=== PATIENT | male | born 1940 | race Caucasian/White ===

== ENCOUNTER 2020-09-24 16:23 | Inpatient (IN) | payer MEDICARE ==
[2020-09-24 17:39] LABS: CHLORIDE,CL 108 mmol/L (98-107); SODIUM,NA 145 mmol/L (136-145)
[2020-09-24 17:51] LABS: ANION GAP 16.2 mmol/L (10-20)
--- NOTE | 2020-09-24 17:53 | EDM.PDOC ---
<Amelia Regalado - Last Filed: 09/24/20 19:41> ED HPI GENERAL MEDICAL PROBLEM - General Stated Complaint: GENERAL Time Seen by Provider: 09/24/20 17:53 Source of Information: Reports: Patient, Family, RN, RN Notes Reviewed History Limitations: Reports: Altered Mental Status - History of Present Illness INITIAL COMMENTS - FREE TEXT/NARRATIVE: Patient presents to ER per [facility] ambulance service with complaint of increased forgetfulness, confusion, fever and chills, nausea, vomiting, diarrhea. Patient is low intellectual acuity, but lives alone in his own home. Has several people that act as a air drier machine operator to help take care of him. 1K air drier machine operator here in the ER with him. Patient has not been able to follow simple commands recently which is new for him. Neon Glass Bender states the patient has been declining over the past 2 months, worse over the past week. Neon Glass Bender states patient has fallen, was not assessed at that time. She has suspicions that the patient has been falling at home more often as well. Onset: Gradual - Related Data Allergies Allergy/AdvReac Type Severity Reaction Status Date / Time No Known Allergies Allergy Verified 09/24/20 20:08 Home Meds: Home Meds Simvastatin 20 mg PO DAILY 09/24/20 [History] lisinopriL [Lisinopril] 20 mg PO DAILY 09/24/20 [History] metFORMIN [Glucophage] 500 mg PO BIDMEALS 09/24/20 [History] Past Medical History - Infectious Disease History Infectious Disease History: Reports: Novel Coronavirus ED ROS GENERAL - Review of Systems Review Of Systems: Comprehensive ROS is negative, except as noted in HPI. ED EXAM, GENERAL - Physical Exam Exam: See Below Exam Limited By: Altered Mental Status General Appearance: Alert, WD/WN, No Apparent Distress Eye Exam: Bilateral Eye: EOMI, Normal Inspection Ears: Normal External Exam, Hearing Grossly Normal Nose: Normal Inspection, Normal Mucosa, No Blood Throat/Mouth: Normal Inspection, Normal Lips, Normal Teeth, Normal Gums, Normal Oropharynx, Normal Voice, No Airway Compromise Head: Atraumatic, Normocephalic Neck: Normal Inspection, Supple, Non-Tender, Full Range of Motion Respiratory/Chest: Decreased Breath Sounds, Crackles, Rhonchi Cardiovascular: Normal Peripheral Pulses, Regular Rate, Rhythm, No Edema, No Gallop, No JVD, No Murmur, No Rub Peripheral Pulses: 2+: Radial (L), Radial (R) GI/Abdominal: Normal Bowel Sounds, Soft, Non-Tender (Male) Exam: Deferred Rectal (Males) Exam: Deferred Back Exam: Normal Inspection, Decreased Range of Motion, Vertebral Tenderness Extremities: Normal Inspection, Normal Range of Motion, Non-Tender, Normal Capillary Refill, No Pedal Edema Neurological: Alert, No Motor/Sensory Deficits Psychiatric: Normal Affect, Normal Mood Skin Exam: Warm, Dry, Intact, Normal Color, No Rash Lymphatic: No Adenopathy Departure - Departure Disposition: Admitted As Inpatient 66 Clinical Impression: Weakness, Confusion, COVID-19 - Discharge Information <Jermaine Mcelroy - Last Filed: 09/25/20 10:03> Course - Vital Signs Last Recorded V/S: Last Vital Signs Temp 98.2 F 09/25/20 06:00 Pulse 68 09/25/20 06:00 Resp 16 09/25/20 06:00 BP 160/76 H 09/25/20 09:33 Pulse Ox 96 09/25/20 07:32 - Orders/Labs/Meds Orders: Active Orders 24 hr Category Date Time Status EKG Documentation Completion [RC] STAT Care 09/24/20 16:30 Active CULTURE BLOOD [BC] Stat Lab 09/24/20 16:55 Received CULTURE BLOOD [BC] Stat Lab 09/24/20 17:45 Received Blood Culture x2 Reflex Set [OM.PC] Stat Oth 09/24/20 16:30 Ordered Medication Orders Acetaminophen (Tylenol) 650 mg PO Q4H PRN PRN Reason: Pain (Mild 1-3)/fever Albuterol (Proventil Neb Soln) 2.5 mg NEB Q2H PRN PRN Reason: Dyspnea Ascorbic Acid (Vitamin C) 1,000 mg PO DAILY KRAIG Last Admin: 09/25/20 09:33 Dose: 1,000 mg Documented by: Admin: 09/25/20 00:03 Dose: 1,000 mg Documented by: SONAM Atorvastatin Calcium (Lipitor) 40 mg PO BEDTIME [facility] Cholecalciferol (Vitamin D3) 20 mcg PO DAILY KRAIG Last Admin: 09/25/20 09:33 Dose: 20 mcg Documented by: Admin: 09/25/20 00:03 Dose: 20 mcg Documented by: SONAM Enoxaparin Sodium (Lovenox) 40 mg SUBCUT BEDTIME [facility] Last Admin: 09/25/20 00:02 Dose: 40 mg Documented by: SONAM Lisinopril (Prinivil) 20 mg PO DAILY [facility] Last Admin: 09/25/20 09:33 Dose: 20 mg Documented by: RUSSELL Loperamide HCl (Imodium) 2 mg PO Q4H PRN PRN Reason: Diarrhea Ondansetron HCl (Zofran) 4 mg IV Q4H PRN PRN Reason: Nausea/Vomiting Ondansetron HCl (Zofran Odt) 4 mg PO Q4H PRN PRN Reason: nausea, able to take PO Simvastatin (Zocor) 20 mg PO DAILY [facility] Zinc Gluconate (Zinc) 200 mg PO DAILY [facility] Last Admin: 09/25/20 09:33 Dose: 200 mg Documented by: Admin: 09/25/20 00:02 Dose: 200 mg Documented by: SONAM Labs: Laboratory Tests 09/24/20 09/24/20 09/24/20 Range/Units 16:50 16:55 16:55 WBC 5.3 (4.0-10.0) x10^3/uL RBC 4.39 L (4.5-6.0) x10^6/uL Hgb 14.3 (14.0-18.0) g/dL Hct 42.9 (40.0-52.0) % MCV 97.7 H (78.0-93.0) fL MCH 32.6 H (26.0-32.0) pg MCHC 33.3 (32.0-36.0) g/dL RDW Coeff of Shantel 12.5 (10.0-15.0) % Plt Count 196 (130-400) x10^3/uL Add Manual Diff Yes Neutrophils % (Manual) 82 H (50-80) % Band Neutrophils % 3 (0-6) % Lymphocytes % (Manual) 4 L (25-50) % Reactive Lymphs % 3 H (0) % Monocytes % (Manual) 8 (2-11) % Platelet Estimate Adequate Macrocytosis 1+ slight H PT 10.9 (9.5-12.3) SEC INR 1.0 L (2.0-3.5) Sodium (136-145) mmol/L Potassium (3.5-5.1) mmol/L Chloride (98-107) mmol/L Carbon Dioxide (21-32) mmol/L Anion Gap (10-20) mmol/L BUN (7-18) mg/dL Creatinine (0.70-1.30) mg/dL Est Cr Clr Drug Dosing Estimated GFR (MDRD) Glucose (74-106) mg/dL Lactic Acid (0.4-2.0) mmol/L Calcium (8.5-10.1) mg/dL Corrected Calcium (8.5-10.1) mg/dL Ferritin (26-388) ng/mL Total Bilirubin (0.2-1.0) mg/dL AST (15-37) U/L ALT (16-63) U/L Alkaline Phosphatase (46-116) U/L Lactate Dehydrogenase (85-227) U/L Troponin I (<=0.056) ng/mL C-Reactive Protein (<=0.9) mg/dL Total Protein (6.4-8.2) g/dL Albumin (3.4-5.0) g/dL Globulin Albumin/Globulin Ratio Urine Color (YELLOW) Urine Appearance (CLEAR) Urine pH (5.0-8.0) Ur Specific [place] Urine Protein (NEGATIVE) mg/dL Urine Glucose (UA) (NEGATIVE) mg/dL Urine Ketones (NEGATIVE) mg/dL Urine Occult Blood (NEGATIVE) Urine Nitrite (NEGATIVE) Urine Bilirubin (NEGATIVE) Urine Urobilinogen (0.2) EU/dL Ur Leukocyte Esterase (NEGATIVE) U Hyaline Cast (Auto) Urine RBC (NOT SEEN) /HPF Urine WBC (NOT SEEN) /HPF Ur Squamous Epith Cells (NEGATIVE) /HPF Urine Bacteria (NEGATIVE) /HPF Urine Mucus (NEGATIVE) /LPF SARS CoV-2 RNA Rapid CAYDEN Positive H (NEGATIVE) 09/24/20 09/24/20 09/24/20 Range/Units 16:55 16:55 16:55 WBC (4.0-10.0) x10^3/uL RBC (4.5-6.0) x10^6/uL Hgb (14.0-18.0) g/dL Hct (40.0-52.0) % MCV (78.0-93.0) fL MCH (26.0-32.0) pg MCHC (32.0-36.0) g/dL RDW Coeff of Shantel (10.0-15.0) % Plt Count (130-400) x10^3/uL Add Manual Diff Neutrophils % (Manual) (50-80) % Band Neutrophils % (0-6) % Lymphocytes % (Manual) (25-50) % Reactive Lymphs % (0) % Monocytes % (Manual) (2-11) % Platelet Estimate Macrocytosis PT (9.5-12.3) SEC INR (2.0-3.5) Sodium 145 (136-145) mmol/L Potassium 4.2 (3.5-5.1) mmol/L Chloride 108 H (98-107) mmol/L Carbon Dioxide 25 (21-32) mmol/L Anion Gap 16.2 (10-20) mmol/L BUN 37 H (7-18) mg/dL Creatinine 1.4 H (0.70-1.30) mg/dL Est Cr Clr Drug Dosing TNP Estimated GFR (MDRD) 49 Glucose 118 H (74-106) mg/dL Lactic Acid 1.1 (0.4-2.0) mmol/L Calcium 9.0 (8.5-10.1) mg/dL Corrected Calcium 9.48 (8.5-10.1) mg/dL Ferritin (26-388) ng/mL Total Bilirubin 0.7 (0.2-1.0) mg/dL AST 29 (15-37) U/L ALT 29 (16-63) U/L Alkaline Phosphatase 49 (46-116) U/L Lactate Dehydrogenase 267 H (85-227) U/L Troponin I < 0.017 (<=0.056) ng/mL C-Reactive Protein 5.5 H (<=0.9) mg/dL Total Protein 8.1 (6.4-8.2) g/dL Albumin 3.4 (3.4-5.0) g/dL Globulin 4.7 Albumin/Globulin Ratio 0.72 Urine Color (YELLOW) Urine Appearance (CLEAR) Urine pH (5.0-8.0) Ur Specific [place] Urine Protein (NEGATIVE) mg/dL Urine Glucose (UA) (NEGATIVE) mg/dL Urine Ketones (NEGATIVE) mg/dL Urine Occult Blood (NEGATIVE) Urine Nitrite (NEGATIVE) Urine Bilirubin (NEGATIVE) Urine Urobilinogen (0.2) EU/dL Ur Leukocyte Esterase (NEGATIVE) U Hyaline Cast (Auto) Urine RBC (NOT SEEN) /HPF Urine WBC (NOT SEEN) /HPF Ur Squamous Epith Cells (NEGATIVE) /HPF Urine Bacteria (NEGATIVE) /HPF Urine Mucus (NEGATIVE) /LPF SARS CoV-2 RNA Rapid CAYDEN (NEGATIVE) 09/24/20 09/24/20 Range/Units 16:55 20:25 WBC (4.0-10.0) x10^3/uL RBC (4.5-6.0) x10^6/uL Hgb (14.0-18.0) g/dL Hct (40.0-52.0) % MCV (78.0-93.0) fL MCH (26.0-32.0) pg MCHC (32.0-36.0) g/dL RDW Coeff of Shantel (10.0-15.0) % Plt Count (130-400) x10^3/uL Add Manual Diff Neutrophils % (Manual) (50-80) % Band Neutrophils % (0-6) % Lymphocytes % (Manual) (25-50) % Reactive Lymphs % (0) % Monocytes % (Manual) (2-11) % Platelet Estimate Macrocytosis PT (9.5-12.3) SEC INR (2.0-3.5) Sodium (136-145) mmol/L Potassium (3.5-5.1) mmol/L Chloride (98-107) mmol/L Carbon Dioxide (21-32) mmol/L Anion Gap (10-20) mmol/L BUN (7-18) mg/dL Creatinine (0.70-1.30) mg/dL Est Cr Clr Drug Dosing Estimated GFR (MDRD) Glucose (74-106) mg/dL Lactic Acid (0.4-2.0) mmol/L Calcium (8.5-10.1) mg/dL Corrected Calcium (8.5-10.1) mg/dL Ferritin 1179 H (26-388) ng/mL Total Bilirubin (0.2-1.0) mg/dL AST (15-37) U/L ALT (16-63) U/L Alkaline Phosphatase (46-116) U/L Lactate Dehydrogenase (85-227) U/L Troponin I (<=0.056) ng/mL C-Reactive Protein (<=0.9) mg/dL Total Protein (6.4-8.2) g/dL Albumin (3.4-5.0) g/dL Globulin Albumin/Globulin Ratio Urine Color Dark yellow H (YELLOW) Urine Appearance Clear (CLEAR) Urine pH 5.5 (5.0-8.0) Ur Specific [place] >=1.030 Urine Protein 100 H (NEGATIVE) mg/dL Urine Glucose (UA) Negative (NEGATIVE) mg/dL Urine Ketones 15 H (NEGATIVE) mg/dL Urine Occult Blood Trace-lysed H (NEGATIVE) Urine Nitrite Negative (NEGATIVE) Urine Bilirubin Moderate H (NEGATIVE) Urine Urobilinogen 1.0 (0.2) EU/dL Ur Leukocyte Esterase Negative (NEGATIVE) U Hyaline Cast (Auto) Few Urine RBC 0-5 (NOT SEEN) /HPF Urine WBC 0-5 (NOT SEEN) /HPF Ur Squamous Epith Cells Rare (NEGATIVE) /HPF Urine Bacteria Not seen (NEGATIVE) /HPF Urine Mucus Rare H (NEGATIVE) /LPF SARS CoV-2 RNA Rapid CAYDEN (NEGATIVE) Meds: Medications Generic Name Dose Route Start Last Admin Trade Name Freq PRN Reason Stop Dose Admin Acetaminophen 650 mg 09/24/20 22:16 Tylenol PO Q4H PRN Pain (Mild 1-3)/fever Albuterol 2.5 mg 09/24/20 22:16 Proventil Neb Soln NEB Q2H PRN Dyspnea Ascorbic Acid 1,000 mg 09/24/20 21:45 09/25/20 09:33 Vitamin C PO 1,000 mg DAILY KRAIG Administration Atorvastatin Calcium 40 mg 09/25/20 20:00 Lipitor PO BEDTIME [facility] Cholecalciferol 20 mcg 09/24/20 21:45 09/25/20 09:33 Vitamin D3 PO 20 mcg DAILY KRAIG Administration Enoxaparin Sodium 40 mg 09/24/20 22:45 09/25/20 00:02 Lovenox SUBCUT 40 mg BEDTIME K[facility]IG Administration Lisinopril 20 mg 09/25/20 08:15 09/25/20 09:33 Prinivil PO 20 mg DAILY KRAIG Administration Loperamide HCl 2 mg 09/24/20 22:46 Imodium PO Q4H PRN Diarrhea Ondansetron HCl 4 mg 09/24/20 22:16 Zofran IV Q4H PRN Nausea/Vomiting Ondansetron HCl 4 mg 09/24/20 22:16 Zofran Odt PO Q4H PRN nausea, able to take PO Simvastatin 20 mg 09/26/20 08:00 Zocor PO DAILY KRAIG Zinc Gluconate 200 mg 09/24/20 21:45 09/25/20 09:33 Zinc PO 200 mg DAILY RKAIG Administration Discontinued Medications Generic Name Dose Route Start Last Admin Trade Name Freq PRN Reason Stop Dose Admin Atorvastatin Calcium 20 mg 09/25/20 20:00 Lipitor PO BEDTIME KRAIG Sodium Chloride 1,000 mls @ 100 mls/hr 09/24/20 18:14 09/24/20 19:25 Normal Saline IV 09/25/20 04:13 200 mls/hr ONETIME ONE Administration - Radiology Interpretation Free Text/Narrative:: CT lumbar spine without contrast per radiology shows lumbar spondylosis with no acute findings CT of the head per radiology shows no acute findings. CT chest without contrast abnormal groundglass subpleural parenchymal opacities in both lungs. Appearance is most consistent with pneumonia including sequelae of COVID-19. CT thoracic spine shows thoracic spondylosis. No acute findings. - Re-Assessments/Exams Free Text/Narrative Re-Assessment/Exam: 09/24/201929 Amelia Pradhan assumed care of this patient at the time of shift change from Amelia Arcos CNP. COVID positive. Clearly has some worsening confusion unknown of the cause at this time. Rest of his labs are fairly unremarkable except for he does have a little bit worsening of his creatinine. This is most likely due to the decreased oral intake of fluids and food. He does have a quite elevated ferritin as well as lactate dehydrogenase concerning for his acute diagnosis of Covid and for a worsening disease over the next couple of days. He does not have any respiratory symptoms and is not requiring any oxygen at this time. Although there is concern for him being at home and the worsening of his situation with his caregivers and his cognitive delay or inability at home. I called and spoke with Dr. Sintia Raymundo from the clinic HPI ER COURSE findings and concerns were relayed to her verbally over the phone. She accepted the patient in transfer at this time for acute management in the hospital here. Departure - Departure Time of Disposition: 21:00
[2020-09-24] MEDS ORDERED: Sodium Chloride 0.9% 1,000 ML IV ONE (18:14)
--- NOTE | 2020-09-24 18:29 | CR ---
[id number] RAD/RAD Chest PA or AP 1V EXAM: RAD Chest PA or AP 1V INDICATION: CHEST PAIN. COMPARISON: None. DISCUSSION: Cardiomegaly and central vascular congestion. Blunting of the left costophrenic sulcus is likely summation artifact from overlapping structures of the chest wall and mediastinum. Nonmasslike peripheral opacity in the right upper lobe abutting the fissure. Appearance is nonspecific but can be seen with pneumonia including sequela of Covid 19 IMPRESSION: As above. Aris Holman MD 09/24/20 [id number] Thank you for allowing us to participate in the care of your patient.
--- NOTE | 2020-09-24 19:38 | CT ---
[id number] CT/CT Head WO IV EXAM: CT Head WO IV CLINICAL DATA: AMS, COVID + COMPARISON STUDY: None FINDINGS: No intracranial hemorrhage, extra-axial fluid collection, mass, or acute ischemia. Diffuse bilateral symmetric parenchymal atrophy throughout the brain. Finding is nonspecific but commonly seen as sequela of chronic small vessel disease. Paranasal sinuses and mastoid air cells are clear. IMPRESSION: No acute findings. Aris Holman MD 09/24/20 1936 Thank you for allowing us to participate in the care of your patient.
--- NOTE | 2020-09-24 19:41 | CT ---
[id number] CT/CT Chest WO IV EXAM: CT Chest WO IV CLINICAL DATA: AMS, COVID + COMPARISON STUDY: Radiograph from today. FINDINGS: Lungs: Scattered patchy areas of geographic appearing nonmasslike groundglass parenchymal opacification in both lungs. Findings are peripheral/subpleural predominant. No pleural effusion or pneumothorax. Mediastinum: No mediastinal or hilar lymphadenopathy. Heart and great vessels: Cardiomegaly. Coronary artery atherosclerosis. No pericardial effusion. Thoracic aorta is normal in caliber. Pulmonary arteries are normal in caliber. Bones: No acute fracture or compression deformity. Spondylosis. Upper abdomen: Diffusely decreased hepatic density is most consistent with underlying steatosis. Correlate with LFTs. Small sliding-type hiatus hernia. Otherwise unremarkable. IMPRESSION: Abnormal groundglass subpleural parenchymal opacities in both lungs. Appearance is most consistent with pneumonia, including sequela of Covid 19. Aris Holman MD 09/24/20 194 Thank you for allowing us to participate in the care of your patient.
--- NOTE | 2020-09-24 19:44 | CT ---
[id number] CT/CT T-Spine 3D Recon [employer] Exam: CT T-Spine 3D Recon [employer] Indication:Back pain. Altered mental status. Comparison: No prior imaging for comparison. Discussion: Thoracic dextroconvexity. Thoracic kyphosis. Mild to moderate changes of lumbar spondylosis. Findings include bulky and bridging osteophytes at most levels throughout the thoracic spine. No fracture or compression deformity. No spondylolisthesis. No radiographic evidence of osteomyelitis/discitis. Impression: No acute findings. Thoracic spondylosis. Aris Holman MD 09/24/20 1943 Thank you for allowing us to participate in the care of your patient.
--- NOTE | 2020-09-24 19:46 | CT ---
[id number] CT/CT Lumbar Spine WO IV Exam: CT Lumbar Spine WO IV Indication:Back pain, altered mental status. Comparison: No prior imaging for comparison. Discussion: Findings are within limitation of patient motion artifact. No evidence of an acute fracture or compression deformity. Lumbar spondylosis. Degenerative disc disease at all levels with disc osteophyte complex formation. Bridging osteophytes at L1-2. Facet joint arthropathy at all levels ranging in severity from mild to moderate. No radiographic evidence of high-grade foraminal stenosis. Central canal stenosis is limited by radiography. Diffuse bone demineralization. Bilateral sacroiliac osteoarthritis. No radiographic evidence of acute osteomyelitis. Aorta atherosclerosis with borderline fusiform dilation in its infrarenal segment. Impression: No acute findings. Lumbar spondylosis. Aris Holman MD 09/24/20 304 Thank you for allowing us to participate in the care of your patient.
[2020-09-24] MEDS ORDERED: Ondansetron 4 MG/2 ML SDV IV PRN (22:16)
[2020-09-24] MEDS ORDERED: Acetaminophen 325 MG Tab PO PRN (22:16)
[2020-09-24] MEDS ORDERED: Ondansetron 4 MG Tab.DIS PO PRN (22:16)
[2020-09-24] MEDS ORDERED: Albuterol 0.083% 2.5 MG/3 ML Neb Soln NEB PRN (22:16)
[2020-09-24] MEDS ORDERED: Loperamide 2 MG Cap PO PRN (22:46)
[2020-09-25] MEDS: Zinc (Zinc Gluconate) 50 MG Tab PO SCH ×2 (00:02→09:33)
[2020-09-25] MEDS: Enoxaparin 40 MG/0.4 ML Syringe SUBCUT SCH ×3 (00:02→20:53)
[2020-09-25] MEDS: Ascorbic Acid 500 MG Tab PO SCH ×2 (00:03→09:33)
[2020-09-25] MEDS: Cholecalciferol (Vitamin D3) 10 MCG Tab PO SCH ×2 (00:03→09:33)
--- NOTE | 2020-09-25 00:30 | HP ---
CHIEF COMPLAINT: Weakness and confusion. HISTORY OF PRESENT ILLNESS: This is an 80-year-old male who does live independently in his home out in [place] and does have numerous family in the area that checks in on him or he checks in at the local cafe. His niece is with him gabi. He has been feeling unwell for a week and a half. Most of the history comes from her. His only complaint is back pain. He had a fall sometime in the last 2 weeks, and had CT scans and x-rays, which did not show any fracture. He was into the clinic on the for an altered mental status and impaired cognition and had lab work done at that time. The patient has not been coughing or short of breath. He has not had any high fevers, but he has had diarrhea over this past 1-1/2 weeks and has not been eating well. Today, he threw up. He was not having abdominal pain or cramping. The guardian had called the clinic. Arrangements were made for the [facility] nurse to go out there and assess the patient. When they arrived, the patient was vomiting with diarrhea. His pupils were small, and the nurse had called 911. He was transported to [facility], where his COVID test was confirmed positive. The patient was not hypotensive. He had a temp of 100. He was 91% on room air. He was dehydrated. He was given IV fluids. He is alert. He is answering questions for me currently. ALLERGIES: None. CURRENT MEDICATIONS: Include lisinopril 20 mg daily, metformin 500 twice daily, and Zocor 20 mg at bedtime. His niece does not believe he has been taking his meds. 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 I have no more details. FAMILY HISTORY: Diabetes. He has prediabetes, mixed hyperlipidemia, essential hypertension, and BPH with lower urinary tract symptoms. SURGICAL HISTORY: A colonoscopy. Family-farris, none listed other than that family history of diabetes. SOCIAL HISTORY: The patient is single. He lives in [place], [place]. There are no reports of alcohol or smoking. He is a former smoker though and quit almost 20 years ago. REVIEW OF SYSTEMS: General: The patient is not aware of any weight changes. He had maintained about the same weight over the last year and a half. Otherwise, his review of systems is impaired due to his cognitive status. PHYSICAL EXAMINATION: Vital Signs: On my visit, temperature down to 97, pulse 62, blood pressure 148/68, respiratory rate 16, and O2 of 93% on room air. Weight is 75.3 kg. Actually, he was 80 kg last week in the clinic. General: He is in no acute distress. Heart: Regular rate and rhythm. S1, S2 without murmur. Lungs: Sounds are actually clear to auscultation bilaterally without crackles or wheezes. Abdomen: Has positive bowel sounds. Soft, nondistended, nontender. Extremities: Warm and dry. No edema. Mental Status: He seems to be alert, but we did not go through full orientation questions. This seems to be about his baseline per his family that was present. LABORATORY WORK: Now reviewed. White count normal 5.3, hemoglobin 14.3, platelets 196. INR 1. Sodium 145, potassium 4.2, chloride 108, bicarb 25, BUN 37, creatinine 1.4, which is up from his recent clinic lab work of 1.1. He had glucose 118, lactic 1.1, calcium 9, ferritin 1179 and it was half of this the other day. Bilirubin 0.7, AST 29, ALT 29, alk phos 49, LDH 267. Troponin negative. CRP 5.5, albumin 3.4. Urine did show protein, moderate bilirubin, 0- 5 wbc's and rbc's. Again, COVID testing negative. X-ray reports do show chest x-ray and chest CT, which have appearance suspicious for COVID-19. [address] head [address] had no acute findings. Lumbar and thoracic CT did not show any compression fractures. ASSESSMENT: 1. Coronavirus disease 19 infection, primarily gastrointestinal symptoms. The patient has been sick a week and a half per family. His positive test was first today. He got it from [facility] [place]. He does not meet any criteria for needing remdesivir or dexamethasone. We will support him with vitamins and give him some intravenous fluids for his dehydration. 2. Acute renal failure likely due to dehydration. We will place a Agudelo due to needing strict in's and out's. 3. History of benign prostatic hyperplasia. We will see if he is retaining any urine when we placed his Agudelo. I suspect though he is dehydrated. 4. Diarrhea due to coronavirus disease 19 infection. He has not been on any recent antibiotics. I will have some Imodium available p.r.n., and will start with a clear liquid diet and advance as tolerated. 5. Essential hypertension. Blood pressure mildly elevated. However, he is in some renal insufficiency. We will hold the lisinopril for now, but restart in the morning if needed. 6. Deep venous thrombosis prophylaxis. I will place him on Lovenox. 7. Hyperlipidemia. He will be on Lipitor, home dose of Zocor. 8. Prediabetes. I will hold metformin and do b.i.d. Accu-Cheks. Adjust medications or add insulin if needed. 9. 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 We will get Working Foreman involved and also therapies as he is weak and work on a discharge disposition. PLAN: The patient is admitted for acute cares. I will slow his fluids down to 100 mL/hr. I will repeat lab work including kidney function in the morning. I have ordered him vitamins and DVT prophylaxis. We will have him on continuous pulse oximetry. The patient is a DNR status, code level 3. Discussed with his niece, who is present, and his guardian at [facility]. Lupe Ellington had sent communication to her as well, which was shown to me. I do feel this is acceptable. The patient also seems to understand that he would not want to be on machines. He is very polite, cooperative, and agreeable to everything that is said. I do not anticipate any acute deterioration. However, it is unclear when his COVID-19 infection actually started. For now, he will be in isolation for the next 10 days. MKA: 09/24/2020 22:49:01 MODL: 09/25/2020 00:27:32 /[id number]
[2020-09-25 07:15] LABS: CHLORIDE,CL 110 mmol/L (98-107); SODIUM,NA 146 mmol/L (136-145)
[2020-09-25 07:21] LABS: ANION GAP 16.9 mmol/L (10-20)
[2020-09-25] MEDS: Lisinopril 20 MG Tab PO SCH (09:33)
--- NOTE | 2020-09-25 10:45 | PCM.PN ---
- General Info Date of Service: 09/25/20 Subjective Update: 80 yo male hospital day #2 admitted with dehydration secondary to COVID-19 related diarrhea. History from the patient is limited due to underlying cognitive impairment. He does answer simple questions. States he is doing "ok." Is refusing his meals because he "is not hungry." Has had some nausea and states he was "trying to" vomit this morning. No diarrheal stools at this time. No abdominal pain. He denies any respiratory symptoms or fever. - Review of Systems General: Reports: No Symptoms HEENT: Reports: No Symptoms Pulmonary: Reports: No Symptoms Cardiovascular: Reports: No Symptoms Gastrointestinal: Reports: Decreased Appetite, Nausea. Denies: Abdominal Pain, Diarrhea, Vomiting Genitourinary: Reports: No Symptoms Musculoskeletal: Reports: No Symptoms Skin: Reports: No Symptoms - Patient Data Vitals - Most Recent: Last Vital Signs Temp 36.8 C 09/25/20 06:00 Pulse 68 09/25/20 06:00 Resp 16 09/25/20 06:00 BP 160/76 H 09/25/20 09:33 Pulse Ox 96 09/25/20 07:32 Weight - Most Recent: 75.387 kg I&O - Last 24 Hours: Intake & Output 09/24/20 09/25/20 09/25/20 22:59 06:59 14:59 Intake Total 734 Output Total 800 Balance -66 Lab Results Last 24 Hours: Laboratory Results - last 24 hr 09/24/20 09/24/20 09/24/20 Range/Units 16:50 16:55 16:55 WBC 5.3 (4.0-10.0) x10^3/uL RBC 4.39 L (4.5-6.0) x10^6/uL Hgb 14.3 (14.0-18.0) g/dL Hct 42.9 (40.0-52.0) % MCV 97.7 H (78.0-93.0) fL MCH 32.6 H (26.0-32.0) pg MCHC 33.3 (32.0-36.0) g/dL RDW Coeff of Shantel 12.5 (10.0-15.0) % Plt Count 196 (130-400) x10^3/uL Add Manual Diff Yes Neutrophils % (Manual) 82 H (50-80) % Band Neutrophils % 3 (0-6) % Lymphocytes % (Manual) 4 L (25-50) % Reactive Lymphs % 3 H (0) % Atypical Lymphs % (0) % Monocytes % (Manual) 8 (2-11) % Smudge Cells Platelet Estimate Adequate Polychromasia Macrocytosis 1+ slight H PT 10.9 (9.5-12.3) SEC INR 1.0 L (2.0-3.5) Sodium (136-145) mmol/L Potassium (3.5-5.1) mmol/L Chloride (98-107) mmol/L Carbon Dioxide (21-32) mmol/L Anion Gap (10-20) mmol/L BUN (7-18) mg/dL Creatinine (0.70-1.30) mg/dL Est Cr Clr Drug Dosing Estimated GFR (MDRD) Glucose (74-106) mg/dL POC Glucose (74-106) mg/dL Lactic Acid (0.4-2.0) mmol/L Calcium (8.5-10.1) mg/dL Corrected Calcium (8.5-10.1) mg/dL Ferritin (26-388) ng/mL Total Bilirubin (0.2-1.0) mg/dL AST (15-37) U/L ALT (16-63) U/L Alkaline Phosphatase (46-116) U/L Lactate Dehydrogenase (85-227) U/L Troponin I (<=0.056) ng/mL C-Reactive Protein (<=0.9) mg/dL Total Protein (6.4-8.2) g/dL Albumin (3.4-5.0) g/dL Globulin Albumin/Globulin Ratio Urine Color (YELLOW) Urine Appearance (CLEAR) Urine pH (5.0-8.0) Ur Specific Willard Urine Protein (NEGATIVE) mg/dL Urine Glucose (UA) (NEGATIVE) mg/dL Urine Ketones (NEGATIVE) mg/dL Urine Occult Blood (NEGATIVE) Urine Nitrite (NEGATIVE) Urine Bilirubin (NEGATIVE) Urine Urobilinogen (0.2) EU/dL Ur Leukocyte Esterase (NEGATIVE) U Hyaline Cast (Auto) Urine RBC (NOT SEEN) /HPF Urine WBC (NOT SEEN) /HPF Ur Squamous Epith Cells (NEGATIVE) /HPF Urine Bacteria (NEGATIVE) /HPF Urine Mucus (NEGATIVE) /LPF SARS CoV-2 RNA Rapid CAYDEN Positive H (NEGATIVE) 09/24/20 09/24/20 09/24/20 Range/Units 16:55 16:55 16:55 WBC (4.0-10.0) x10^3/uL RBC (4.5-6.0) x10^6/uL Hgb (14.0-18.0) g/dL Hct (40.0-52.0) % MCV (78.0-93.0) fL MCH (26.0-32.0) pg MCHC (32.0-36.0) g/dL RDW Coeff of Shantel (10.0-15.0) % Plt Count (130-400) x10^3/uL Add Manual Diff Neutrophils % (Manual) (50-80) % Band Neutrophils % (0-6) % Lymphocytes % (Manual) (25-50) % Reactive Lymphs % (0) % Atypical Lymphs % (0) % Monocytes % (Manual) (2-11) % Smudge Cells Platelet Estimate Polychromasia Macrocytosis PT (9.5-12.3) SEC INR (2.0-3.5) Sodium 145 (136-145) mmol/L Potassium 4.2 (3.5-5.1) mmol/L Chloride 108 H (98-107) mmol/L Carbon Dioxide 25 (21-32) mmol/L Anion Gap 16.2 (10-20) mmol/L BUN 37 H (7-18) mg/dL Creatinine 1.4 H (0.70-1.30) mg/dL Est Cr Clr Drug Dosing TNP Estimated GFR (MDRD) 49 Glucose 118 H (74-106) mg/dL POC Glucose (74-106) mg/dL Lactic Acid 1.1 (0.4-2.0) mmol/L Calcium 9.0 (8.5-10.1) mg/dL Corrected Calcium 9.48 (8.5-10.1) mg/dL Ferritin (26-388) ng/mL Total Bilirubin 0.7 (0.2-1.0) mg/dL AST 29 (15-37) U/L ALT 29 (16-63) U/L Alkaline Phosphatase 49 (46-116) U/L Lactate Dehydrogenase 267 H (85-227) U/L Troponin I < 0.017 (<=0.056) ng/mL C-Reactive Protein 5.5 H (<=0.9) mg/dL Total Protein 8.1 (6.4-8.2) g/dL Albumin 3.4 (3.4-5.0) g/dL Globulin 4.7 Albumin/Globulin Ratio 0.72 Urine Color (YELLOW) Urine Appearance (CLEAR) Urine pH (5.0-8.0) Ur Specific [place] Urine Protein (NEGATIVE) mg/dL Urine Glucose (UA) (NEGATIVE) mg/dL Urine Ketones (NEGATIVE) mg/dL Urine Occult Blood (NEGATIVE) Urine Nitrite (NEGATIVE) Urine Bilirubin (NEGATIVE) Urine Urobilinogen (0.2) EU/dL Ur Leukocyte Esterase (NEGATIVE) U Hyaline Cast (Auto) Urine RBC (NOT SEEN) /HPF Urine WBC (NOT SEEN) /HPF Ur Squamous Epith Cells (NEGATIVE) /HPF Urine Bacteria (NEGATIVE) /HPF Urine Mucus (NEGATIVE) /LPF SARS CoV-2 RNA Rapid CAYDEN (NEGATIVE) 09/24/20 09/24/20 09/25/20 Range/Units 16:55 20:25 06:22 WBC (4.0-10.0) x10^3/uL RBC (4.5-6.0) x10^6/uL Hgb (14.0-18.0) g/dL Hct (40.0-52.0) % MCV (78.0-93.0) fL MCH (26.0-32.0) pg MCHC (32.0-36.0) g/dL RDW Coeff of Shantel (10.0-15.0) % Plt Count (130-400) x10^3/uL Add Manual Diff Neutrophils % (Manual) (50-80) % Band Neutrophils % (0-6) % Lymphocytes % (Manual) (25-50) % Reactive Lymphs % (0) % Atypical Lymphs % (0) % Monocytes % (Manual) (2-11) % Smudge Cells Platelet Estimate Polychromasia Macrocytosis PT (9.5-12.3) SEC INR (2.0-3.5) Sodium (136-145) mmol/L Potassium (3.5-5.1) mmol/L Chloride (98-107) mmol/L Carbon Dioxide (21-32) mmol/L Anion Gap (10-20) mmol/L BUN (7-18) mg/dL Creatinine (0.70-1.30) mg/dL Est Cr Clr Drug Dosing Estimated GFR (MDRD) Glucose (74-106) mg/dL POC Glucose 95 (74-106) mg/dL Lactic Acid (0.4-2.0) mmol/L Calcium (8.5-10.1) mg/dL Corrected Calcium (8.5-10.1) mg/dL Ferritin 1179 H (26-388) ng/mL Total Bilirubin (0.2-1.0) mg/dL AST (15-37) U/L ALT (16-63) U/L Alkaline Phosphatase (46-116) U/L Lactate Dehydrogenase (85-227) U/L Troponin I (<=0.056) ng/mL C-Reactive Protein (<=0.9) mg/dL Total Protein (6.4-8.2) g/dL Albumin (3.4-5.0) g/dL Globulin Albumin/Globulin Ratio Urine Color Dark yellow H (YELLOW) Urine Appearance Clear (CLEAR) Urine pH 5.5 (5.0-8.0) Ur Specific Willard >=1.030 Urine Protein 100 H (NEGATIVE) mg/dL Urine Glucose (UA) Negative (NEGATIVE) mg/dL Urine Ketones 15 H (NEGATIVE) mg/dL Urine Occult Blood Trace-lysed H (NEGATIVE) Urine Nitrite Negative (NEGATIVE) Urine Bilirubin Moderate H (NEGATIVE) Urine Urobilinogen 1.0 (0.2) EU/dL Ur Leukocyte Esterase Negative (NEGATIVE) U Hyaline Cast (Auto) Few Urine RBC 0-5 (NOT SEEN) /HPF Urine WBC 0-5 (NOT SEEN) /HPF Ur Squamous Epith Cells Rare (NEGATIVE) /HPF Urine Bacteria Not seen (NEGATIVE) /HPF Urine Mucus Rare H (NEGATIVE) /LPF SARS CoV-2 RNA Rapid CAYDEN (NEGATIVE) 09/25/20 09/25/20 Range/Units 06:41 06:41 WBC 6.4 (4.0-10.0) x10^3/uL RBC 4.20 L (4.5-6.0) x10^6/uL Hgb 13.6 L (14.0-18.0) g/dL Hct 41.2 (40.0-52.0) % MCV 98.1 H (78.0-93.0) fL MCH 32.4 H (26.0-32.0) pg MCHC 33.0 (32.0-36.0) g/dL RDW Coeff of Shantel 12.5 (10.0-15.0) % Plt Count 183 (130-400) x10^3/uL Add Manual Diff Yes Neutrophils % (Manual) 80 (50-80) % Band Neutrophils % 4 (0-6) % Lymphocytes % (Manual) 5 L (25-50) % Reactive Lymphs % 3 H (0) % Atypical Lymphs % 2 H (0) % Monocytes % (Manual) 6 (2-11) % Smudge Cells Rare H Platelet Estimate Adequate Polychromasia Rare Macrocytosis 1+ slight H PT (9.5-12.3) SEC INR (2.0-3.5) Sodium 146 H (136-145) mmol/L Potassium 3.9 (3.5-5.1) mmol/L Chloride 110 H (98-107) mmol/L Carbon Dioxide 23 (21-32) mmol/L Anion Gap 16.9 (10-20) mmol/L BUN 28 H (7-18) mg/dL Creatinine 1.1 (0.70-1.30) mg/dL Est Cr Clr Drug Dosing 50.08 Estimated GFR (MDRD) > 60 Glucose 95 (74-106) mg/dL POC Glucose (74-106) mg/dL Lactic Acid (0.4-2.0) mmol/L Calcium 8.5 (8.5-10.1) mg/dL Corrected Calcium (8.5-10.1) mg/dL Ferritin (26-388) ng/mL Total Bilirubin (0.2-1.0) mg/dL AST (15-37) U/L ALT (16-63) U/L Alkaline Phosphatase (46-116) U/L Lactate Dehydrogenase (85-227) U/L Troponin I (<=0.056) ng/mL C-Reactive Protein (<=0.9) mg/dL Total Protein (6.4-8.2) g/dL Albumin (3.4-5.0) g/dL Globulin Albumin/Globulin Ratio Urine Color (YELLOW) Urine Appearance (CLEAR) Urine pH (5.0-8.0) Ur Specific Willard Urine Protein (NEGATIVE) mg/dL Urine Glucose (UA) (NEGATIVE) mg/dL Urine Ketones (NEGATIVE) mg/dL Urine Occult Blood (NEGATIVE) Urine Nitrite (NEGATIVE) Urine Bilirubin (NEGATIVE) Urine Urobilinogen (0.2) EU/dL Ur Leukocyte Esterase (NEGATIVE) U Hyaline Cast (Auto) Urine RBC (NOT SEEN) /HPF Urine WBC (NOT SEEN) /HPF Ur Squamous Epith Cells (NEGATIVE) /HPF Urine Bacteria (NEGATIVE) /HPF Urine Mucus (NEGATIVE) /LPF SARS CoV-2 RNA Rapid CAYDEN (NEGATIVE) Jose Antonio Results Last 24 Hours: Microbiology 09/24/20 16:50 Influenza Type A Antigen Screen - Final Nasal, Unspecified NEGATIVE INFLUENZA A VIRUS AG REFERENCE RANGE: NEGATIVE Influenza Type B Antigen Screen - Final NEGATIVE INFLUENZA B VIRUS AG REFERENCE RANGE: NEGATIVE Med Orders - Current: Current Medications Acetaminophen (Tylenol) 650 mg PO Q4H PRN PRN Reason: Pain (Mild 1-3)/fever Albuterol (Proventil Neb Soln) 2.5 mg NEB Q2H PRN PRN Reason: Dyspnea Ascorbic Acid (Vitamin C) 1,000 mg PO DAILY [facility] Last Admin: 09/25/20 09:33 Dose: 1,000 mg Documented by: Atorvastatin Calcium (Lipitor) 40 mg PO BEDTIME [facility] Cholecalciferol (Vitamin D3) 20 mcg PO DAILY [facility] Last Admin: 09/25/20 09:33 Dose: 20 mcg Documented by: Enoxaparin Sodium (Lovenox) 40 mg SUBCUT BEDTIME [facility] Last Admin: 09/25/20 00:02 Dose: 40 mg Documented by: Lisinopril (Prinivil) 20 mg PO DAILY [facility] Last Admin: 09/25/20 09:33 Dose: 20 mg Documented by: Loperamide HCl (Imodium) 2 mg PO Q4H PRN PRN Reason: Diarrhea Ondansetron HCl (Zofran) 4 mg IV Q4H PRN PRN Reason: Nausea/Vomiting Ondansetron HCl (Zofran Odt) 4 mg PO Q4H PRN PRN Reason: nausea, able to take PO Zinc Gluconate (Zinc) 200 mg PO DAILY [facility] Last Admin: 09/25/20 09:33 Dose: 200 mg Documented by: Discontinued Medications Atorvastatin Calcium (Lipitor) 20 mg PO BEDTIME [facility] Sodium Chloride (Normal Saline) 1,000 mls @ 100 mls/hr IV ONETIME ONE Stop: 09/25/20 04:13 Last Admin: 09/24/20 19:25 Dose: 200 mls/hr Documented by: Simvastatin (Zocor) 20 mg PO DAILY KRAIG - Exam General: Alert, Cooperative, No Acute Distress HEENT: Mucous Membr. Moist/[place]: Supple, Trachea Midline, No Thyromegaly. No: Lymphadenopathy Lungs: Clear to Auscultation, Normal Respiratory Effort Cardiovascular: Regular Rate, Regular Rhythm, No Murmurs GI/Abdominal Exam: Normal Bowel Sounds, Soft, Non-Tender, No Organomegaly, No D istention, No Mass Extremities: Non-Tender, No Pedal Edema, Normal Capillary Refill Peripheral Pulses: 2+: Radial (L), Radial (R) Skin: Warm, Dry, Intact Neurological: No New Focal Deficit Sepsis Event Note - Evaluation Sepsis Screening Result: No Definite Risk - Focused Exam Vital Signs: Vital Signs Temp Pulse Resp BP BP Pulse Ox Pulse Ox 09/25/20 09:33 160/76 H 09/25/20 07:32 96 09/25/20 06:00 36.8 C 68 16 160/76 H 95 09/25/20 02:00 37.0 C 68 18 142/73 H 95 09/24/20 22:43 94 L - Problem List & Annotations (1) COVID-19 SNOMED Code(s): 179116578 Code(s): U07.1 - COVID-19 Status: Acute Current Visit: Yes (2) Acute kidney injury SNOMED Code(s): 22278532, 16438516 Code(s): N17.9 - ACUTE KIDNEY FAILURE, UNSPECIFIED Status: Acute Current Visit: Yes (3) Dehydration SNOMED Code(s): 63798313 Code(s): E86.0 - DEHYDRATION Status: Acute Current Visit: Yes (4) BPH (benign prostatic hyperplasia) SNOMED Code(s): 681185165 Code(s): N40.0 - BENIGN PROSTATIC HYPERPLASIA WITHOUT LOWER URINRY TRACT SYMP Status: Chronic Current Visit: Yes Qualifiers: Lower urinary tract symptom presence: symptoms absent Qualified Code(s): N40.0 - Benign prostatic hyperplasia without lower urinary tract symptoms (5) Hypertension SNOMED Code(s): 45642102 Code(s): I10 - ESSENTIAL (PRIMARY) HYPERTENSION Status: Chronic Current Visit: Yes Qualifiers: Hypertension type: essential hypertension Qualified Code(s): I10 - Essential (primary) hypertension (6) Hyperlipidemia SNOMED Code(s): 75144933 Code(s): E78.5 - HYPERLIPIDEMIA, UNSPECIFIED Status: Chronic Current Visit: Yes Qualifiers: Hyperlipidemia type: unspecified Qualified Code(s): E78.5 - Hyperlipidemia, unspecified (7) Prediabetes SNOMED Code(s): 008326628 Code(s): R73.03 - PREDIABETES Status: Chronic Current Visit: Yes (8) Cognitive impairment SNOMED Code(s): 806358042 Code(s): R41.89 - OTH SYMPTOMS AND SIGNS W COGNITIVE FUNCTIONS AND AWARENESS Status: Chronic Current Visit: Yes - Problem List Review Problem List Initiated/Reviewed/Updated: Yes - My Orders Last 24 Hours: My Active Orders 09/25/20 08:15 lisinopriL [Prinivil] 20 mg PO DAILY - Assessment Assessment:: 80 yo male admitted with dehydration and PIPPA secondary to COVID related diarrhea. Patient not wanting to eat much but not having vomiting/diarrhea at this time. Labs improved this am. - Plan Plan:: #1 COVID - Symptoms mainly GI. Improved per patient report. - Is on 1L of oxygen due to mild hypoxia and lung changes on imaging. Will wean oxygen as able. - Care is supportive at this point. - No indication for dexamethasone or remdesivir. - Continue vitamins and zinc. #2 PIPPA, secondary to #3 #3 Dehydration, secondary to #1 - Creatinine back down to 1.1 today, which is his baseline. - Given highly fluid sensitive nature of COVID, will hold off on any further IV fluids at this time unless warranted by vital signs. - Will recheck lab tomorrow am. - Patient is encouraged to eat/drink as he is able to tolerate. - Rao was placed on admission but will be removed today. #4 BPH - Will monitor for any urinary retention after rao catheter removal. - He is not currently on any medications for this. #5 Hypertension #6 Hyperlipidemia #7 Prediabetes - Will resume lisinopril today given elevated BP's and return of creatinine to normal. - Continue statin as well. - Will continue to hold metformin while hospitalized. #8 Cognitive impairment - Progressing prior to current illness and plans in place for admission to [place]. - Anticipate he will be medically prepared for d/c as soon as tomorrow depending on his clinical course but it is unclear whether he will be able to go to [place] given positive test just yesterday despite known illness duration of longer than that. Patient will remain on acute today - planning to wean oxygen as able as well as proceed with urinary catheter removal/voiding trial. Also needs to improve oral intake to prove ability to stay hydrated. web content & social media manager consulted to assist with discharge planning. Code status is DNR/DNI - discussed with patient's guardian by admitting provider. He is on lovenox for VTE prophylaxis.
[2020-09-25] MEDS ORDERED: LORazepam 2 MG/ML SDV IV PRN (13:24)
[2020-09-25] MEDS ORDERED: Flumazenil 0.1 MG/ML 5 ML MDV IVPUSH PRN (13:24)
[2020-09-25] MEDS ORDERED: hydrOXYzine HCl 25 MG Tab PO PRN (13:24)
[2020-09-25] MEDS: atorvaSTATin 40 MG Tab PO SCH ×2 (18:11→20:53)
[2020-09-25] MEDS ORDERED: atorvaSTATin 10 MG Tab PO SCH (20:00)
[2020-09-26 07:26] LABS: ANION GAP 15.8 mmol/L (10-20)
[2020-09-26] MEDS ORDERED: Simvastatin 20 MG Tab PO SCH (08:00)
--- NOTE | 2020-09-26 08:32 | PCM.DCSUM1 ---
Discharge Summary - Hospital Course Brief History: Mr. Raza is an 80 yo male admitted with dehydration secondary to COVID related diarrhea after presenting to the ER for evaluation of generalized weakness and altered mental status. - Discharge Data Discharge Date: 09/26/20 Discharge Disposition: DC/Tfer W/I Hosp To Swing 61 Condition: Good - Referral to Home Health Primary Care Physician: Reji Palencia PA-C - Discharge Diagnosis/Problem(s) (1) COVID-19 SNOMED Code(s): 072041004 ICD Code: U07.1 - COVID-19 Status: Acute Current Visit: Yes (2) Acute kidney injury SNOMED Code(s): 70553478, 44053502 ICD Code: N17.9 - ACUTE KIDNEY FAILURE, UNSPECIFIED Status: Acute Current Visit: Yes (3) Dehydration SNOMED Code(s): 27931178 ICD Code: E86.0 - DEHYDRATION Status: Acute Current Visit: Yes (4) BPH (benign prostatic hyperplasia) SNOMED Code(s): 470839723 ICD Code: N40.0 - BENIGN PROSTATIC HYPERPLASIA WITHOUT LOWER URINRY TRACT S YMP Status: Chronic Current Visit: Yes Qualifiers: Lower urinary tract symptom presence: symptoms absent Qualified Code(s): N40.0 - Benign prostatic hyperplasia without lower urinary tract symptoms (5) Hypertension SNOMED Code(s): 31692552 ICD Code: I10 - ESSENTIAL (PRIMARY) HYPERTENSION Status: Chronic Current Visit: Yes Qualifiers: Hypertension type: essential hypertension Qualified Code(s): I10 - Essential (primary) hypertension (6) Hyperlipidemia SNOMED Code(s): 40492421 ICD Code: E78.5 - HYPERLIPIDEMIA, UNSPECIFIED Status: Chronic Current Visit: Yes Qualifiers: Hyperlipidemia type: unspecified Qualified Code(s): E78.5 - Hyperlipidemia, unspecified (7) Prediabetes SNOMED Code(s): 964766629 ICD Code: R73.03 - PREDIABETES Status: Chronic Current Visit: Yes (8) Cognitive impairment SNOMED Code(s): 393649636 ICD Code: R41.89 - OTH SYMPTOMS AND SIGNS W COGNITIVE FUNCTIONS AND AWARENESS Status: Chronic Current Visit: Yes - Patient Summary/Data Operative Procedure(s) Performed: none Complications: none Consults: Consultations 09/24/20 22:37 Consult to Case Management/Fur Polisher [CONS] Routine PT Evaluation and Treatment [CONS] Routine Labs Pending at D/C: none Recommended Follow-up Testing/Procedures: none Planned Operative Procedure(s) after DC: none Hospital Course: The patient was admitted and started on oxygen and IV fluids. He was also started on zinc, vitamin D, vitamin C, and lipitor (instead of his usual zocor). His kidney function improved and his nausea and diarrhea resolved. He has been eating and drinking well without any issues. He has been off of IV fluids since yesterday morning. He has also been off oxygen since yesterday morning and has not had any persistent desaturations below 90%. He is weak but is at baseline. The plan is for him to transition to [facility]; however, he will not be able to do that until 10 days from his positive COVID test (as far as I am aware). Therefore, he will be transitioned to swing bed today. Hopefully this will be under the Coronavirus waiver since that is truly the reason he is not able to discharge today. However, his guardian is also aware that this may be self pay. - Discharge Plan Home Medications: Home Meds Simvastatin 20 mg PO DAILY 09/24/20 [History] lisinopriL [Lisinopril] 20 mg PO DAILY 09/24/20 [History] metFORMIN [Glucophage] 500 mg PO BIDMEALS 09/24/20 [History] Acetaminophen [Tylenol] 650 mg PO Q4H PRN tablet 09/26/20 [Rx] Albuterol [Proventil Neb Soln] 2.5 mg NEB Q2H PRN neb 09/26/20 [Rx] Ascorbic Acid [Vitamin C] 1,000 mg PO DAILY tablet 09/26/20 [Rx] Cholecalciferol (Vitamin D3) [Vitamin D3] 20 mcg PO DAILY tablet 09/26/20 [Rx] Enoxaparin [Lovenox] 40 mg SUBCUT BEDTIME syringe 09/26/20 [Rx] Loperamide [Imodium] 2 mg PO Q4H PRN cap 09/26/20 [Rx] Ondansetron [Zofran ODT] 4 mg PO Q4H PRN tab.dis 09/26/20 [Rx] Zinc Gluconate [Zinc] 200 mg PO DAILY tablet 09/26/20 [Rx] atorvaSTATin [Lipitor] 40 mg PO BEDTIME tablet 09/26/20 [Rx] Forms: ED Department Discharge Referrals: Reji Palencia PA-C [Primary Care Provider] - - Discharge Summary/Plan Comment DC Time >30 min.: No - General Info Date of Service: 09/26/20 Subjective Update: 80 yo male hospital day #3 admitted for dehydration and PIPPA secondary to COVID related diarrhea. States he is doing well this morning. Denies any diarrhea or vomiting since admit. Has been eating and drinking well. No fever. No cough or shortness of breath. - Review of Systems General: Reports: No Symptoms HEENT: Reports: No Symptoms Pulmonary: Reports: No Symptoms Cardiovascular: Reports: No Symptoms Gastrointestinal: Reports: No Symptoms Genitourinary: Reports: No Symptoms Musculoskeletal: Reports: No Symptoms Skin: Reports: No Symptoms Neurological: Reports: No Symptoms - Patient Data Vitals - Most Recent: Last Vital Signs Temp 37.1 C 09/26/20 05:46 Pulse 76 09/26/20 05:46 Resp 18 09/26/20 05:46 BP 146/78 H 09/26/20 05:46 Pulse Ox 94 L 09/26/20 06:00 Weight - Most Recent: 75.387 kg I&O - Last 24 hours: Intake & Output 09/25/20 09/26/20 09/26/20 22:59 06:59 14:59 Intake Total 120 150 Balance 120 150 Lab Results - Last 24 hrs: Laboratory Results - last 24 hr 09/25/20 09/26/20 09/26/20 Range/Units 18:03 06:04 06:55 WBC 9.1 (4.0-10.0) x10^3/uL RBC 4.36 L (4.5-6.0) x10^6/uL Hgb 14.1 (14.0-18.0) g/dL Hct 42.9 (40.0-52.0) % MCV 98.4 H (78.0-93.0) fL MCH 32.3 H (26.0-32.0) pg MCHC 32.9 (32.0-36.0) g/dL RDW Coeff of Shantel 12.5 (10.0-15.0) % Plt Count 218 (130-400) x10^3/uL Add Manual Diff Yes Neutrophils % (Manual) 84 H (50-80) % Band Neutrophils % 1 (0-6) % Lymphocytes % (Manual) 13 L (25-50) % Monocytes % (Manual) 1 L (2-11) % Promyelocytes % 1 H (0) % Platelet Estimate Adequate Giant Platelets Rare H Sodium (136-145) mmol/L Potassium (3.5-5.1) mmol/L Chloride (98-107) mmol/L Carbon Dioxide (21-32) mmol/L Anion Gap (10-20) mmol/L BUN (7-18) mg/dL Creatinine (0.70-1.30) mg/dL Est Cr Clr Drug Dosing mL/min Estimated GFR (MDRD) Glucose (74-106) mg/dL POC Glucose 117 H 100 (74-106) mg/dL Calcium (8.5-10.1) mg/dL 09/26/20 Range/Units 06:55 WBC (4.0-10.0) x10^3/uL RBC (4.5-6.0) x10^6/uL Hgb (14.0-18.0) g/dL Hct (40.0-52.0) % MCV (78.0-93.0) fL MCH (26.0-32.0) pg MCHC (32.0-36.0) g/dL RDW Coeff of Shantel (10.0-15.0) % Plt Count (130-400) x10^3/uL Add Manual Diff Neutrophils % (Manual) (50-80) % Band Neutrophils % (0-6) % Lymphocytes % (Manual) (25-50) % Monocytes % (Manual) (2-11) % Promyelocytes % (0) % Platelet Estimate Giant Platelets Sodium 147 H (136-145) mmol/L Potassium 3.8 (3.5-5.1) mmol/L Chloride 112 H (98-107) mmol/L Carbon Dioxide 23 (21-32) mmol/L Anion Gap 15.8 (10-20) mmol/L BUN 26 H (7-18) mg/dL Creatinine 1.4 H (0.70-1.30) mg/dL Est Cr Clr Drug Dosing 39.35 mL/min Estimated GFR (MDRD) 49 Glucose 115 H (74-106) mg/dL POC Glucose (74-106) mg/dL Calcium 8.6 (8.5-10.1) mg/dL NICOLÁS Results - Last 24 hrs: Microbiology 09/24/20 17:45 Aerobic Blood Culture - Preliminary Blood - Venous - Lab Draw NO GROWTH AFTER 1 DAY Anaerobic Blood Culture - Preliminary NO GROWTH AFTER 1 DAY 09/24/20 16:55 Aerobic Blood Culture - Preliminary Blood - Venous NO GROWTH AFTER 1 DAY Anaerobic Blood Culture - Preliminary NO GROWTH AFTER 1 DAY Med Orders - Current: Current Medications Acetaminophen (Tylenol) 650 mg PO Q4H PRN PRN Reason: Pain (Mild 1-3)/fever Last Admin: 09/25/20 18:08 Dose: 650 mg Documented by: Albuterol (Proventil Neb Soln) 2.5 mg NEB Q2H PRN PRN Reason: Dyspnea Ascorbic Acid (Vitamin C) 1,000 mg PO DAILY [facility] Last Admin: 09/25/20 09:33 Dose: 1,000 mg Documented by: Atorvastatin Calcium (Lipitor) 40 mg PO BEDTIME [facility] Last Admin: 09/25/20 20:53 Dose: Not Given Documented by: Cholecalciferol (Vitamin D3) 20 mcg PO DAILY [facility] Last Admin: 09/25/20 09:33 Dose: 20 mcg Documented by: Enoxaparin Sodium (Lovenox) 40 mg SUBCUT BEDTIME [facility] Last Admin: 09/25/20 20:53 Dose: Not Given Documented by: Flumazenil (Romazicon) 0.2 mg IVPUSH ASDIRECTED PRN PRN Reason: Respiratory Depression Hydroxyzine HCl (Atarax) 25 mg PO Q4H PRN PRN Reason: Anxiety Lisinopril (Prinivil) 20 mg PO DAILY [facility] Last Admin: 09/25/20 09:33 Dose: 20 mg Documented by: Loperamide HCl (Imodium) 2 mg PO Q4H PRN PRN Reason: Diarrhea Lorazepam (Ativan) 0.5 mg IV Q4H PRN PRN Reason: Agitation Ondansetron HCl (Zofran) 4 mg IV Q4H PRN PRN Reason: Nausea/Vomiting Ondansetron HCl (Zofran Odt) 4 mg PO Q4H PRN PRN Reason: nausea, able to take PO Zinc Gluconate (Zinc) 200 mg PO DAILY [facility] Last Admin: 09/25/20 09:33 Dose: 200 mg Documented by: Discontinued Medications Sodium Chloride (Normal Saline) 1,000 mls @ 100 mls/hr IV ONETIME ONE Stop: 09/25/20 04:13 Last Admin: 09/24/20 19:25 Dose: 200 mls/hr Documented by: - Exam General: Reports: Alert, Cooperative, No Acute Distress HEENT: Reports: Mucous Membr. Moist/[place] Neck: Reports: Supple, Trachea Midline, No Thyromegaly. Denies: Lymphadenopathy Lungs: Reports: Clear to Auscultation, Normal Respiratory Effort Cardiovascular: Reports: Regular Rate, Regular Rhythm, No Murmurs GI/Abdominal Exam: Normal Bowel Sounds, Soft, Non-Tender, No Organomegaly, No Distention, No Mass Extremities: Normal Inspection, Non-Tender, No Pedal Edema Skin: Reports: Warm, Dry, Intact
[2020-09-26] MEDS: Ascorbic Acid 500 MG Tab PO SCH (09:48)
[2020-09-26] MEDS: Cholecalciferol (Vitamin D3) 10 MCG Tab PO SCH (09:48)
[2020-09-26] MEDS: Zinc (Zinc Gluconate) 50 MG Tab PO SCH (09:48)
[2020-09-26] MEDS: Lisinopril 20 MG Tab PO SCH (09:49)
--- NOTE | 2020-09-26 14:43 | PCM.PN ---
- General Info Date of Service: 09/26/20 Subjective Update: 80 yo male hospital day #3 admitted with PIPPA and dehydration related to COVID-19 diarrhea. Plan had been to discharge patient from acute to swing today; however, he has not been keeping up with his intake as well today as yesterday and his oxygen saturations have been noted to be lower today. Therefore, he is going to remain on acute status today. He states that he is feeling fine. He denies any diarrhea or vomiting since yesterday. He has been eating/drinking ok but still admits that he is not really that hungry. He did have a fever last evening. He still is denying any cough, shortness of breath, or chest pain. - Review of Systems General: Reports: Fever, Weakness, Fatigue HEENT: Reports: No Symptoms Pulmonary: Reports: No Symptoms Cardiovascular: Reports: No Symptoms Gastrointestinal: Reports: No Symptoms Genitourinary: Reports: No Symptoms Musculoskeletal: Reports: No Symptoms Skin: Reports: No Symptoms Neurological: Reports: No Symptoms - Patient Data Vitals - Most Recent: Last Vital Signs Temp 36.4 C 09/26/20 14:00 Pulse 61 09/26/20 14:00 Resp 20 09/26/20 14:00 BP 135/70 09/26/20 14:00 Pulse Ox 92 L 09/26/20 14:00 Weight - Most Recent: 75.387 kg I&O - Last 24 Hours: Intake & Output 09/25/20 09/26/20 09/26/20 22:59 06:59 14:59 Intake Total 120 150 120 Balance 120 150 120 Lab Results Last 24 Hours: Laboratory Results - last 24 hr 09/25/20 09/26/20 09/26/20 Range/Units 18:03 06:04 06:55 WBC 9.1 (4.0-10.0) x10^3/uL RBC 4.36 L (4.5-6.0) x10^6/uL Hgb 14.1 (14.0-18.0) g/dL Hct 42.9 (40.0-52.0) % MCV 98.4 H (78.0-93.0) fL MCH 32.3 H (26.0-32.0) pg MCHC 32.9 (32.0-36.0) g/dL RDW Coeff of Shantel 12.5 (10.0-15.0) % Plt Count 218 (130-400) x10^3/uL Add Manual Diff Yes Neutrophils % (Manual) 84 H (50-80) % Band Neutrophils % 1 (0-6) % Lymphocytes % (Manual) 13 L (25-50) % Monocytes % (Manual) 1 L (2-11) % Promyelocytes % 1 H (0) % Platelet Estimate Adequate Giant Platelets Rare H Sodium (136-145) mmol/L Potassium (3.5-5.1) mmol/L Chloride (98-107) mmol/L Carbon Dioxide (21-32) mmol/L Anion Gap (10-20) mmol/L BUN (7-18) mg/dL Creatinine (0.70-1.30) mg/dL Est Cr Clr Drug Dosing mL/min Estimated GFR (MDRD) Glucose (74-106) mg/dL POC Glucose 117 H 100 (74-106) mg/dL Calcium (8.5-10.1) mg/dL 09/26/20 Range/Units 06:55 WBC (4.0-10.0) x10^3/uL RBC (4.5-6.0) x10^6/uL Hgb (14.0-18.0) g/dL Hct (40.0-52.0) % MCV (78.0-93.0) fL MCH (26.0-32.0) pg MCHC (32.0-36.0) g/dL RDW Coeff of Shantel (10.0-15.0) % Plt Count (130-400) x10^3/uL Add Manual Diff Neutrophils % (Manual) (50-80) % Band Neutrophils % (0-6) % Lymphocytes % (Manual) (25-50) % Monocytes % (Manual) (2-11) % Promyelocytes % (0) % Platelet Estimate Giant Platelets Sodium 147 H (136-145) mmol/L Potassium 3.8 (3.5-5.1) mmol/L Chloride 112 H (98-107) mmol/L Carbon Dioxide 23 (21-32) mmol/L Anion Gap 15.8 (10-20) mmol/L BUN 26 H (7-18) mg/dL Creatinine 1.4 H (0.70-1.30) mg/dL Est Cr Clr Drug Dosing 39.35 mL/min Estimated GFR (MDRD) 49 Glucose 115 H (74-106) mg/dL POC Glucose (74-106) mg/dL Calcium 8.6 (8.5-10.1) mg/dL [facility] Results Last 24 Hours: Microbiology 09/24/20 17:45 Aerobic Blood Culture - Preliminary Blood - Venous - Lab Draw NO GROWTH AFTER 1 DAY Anaerobic Blood Culture - Preliminary NO GROWTH AFTER 1 DAY 09/24/20 16:55 Aerobic Blood Culture - Preliminary Blood - Venous NO GROWTH AFTER 1 DAY Anaerobic Blood Culture - Preliminary NO GROWTH AFTER 1 DAY Med Orders - Current: Current Medications Acetaminophen (Tylenol) 650 mg PO Q4H PRN PRN Reason: Pain (Mild 1-3)/fever Last Admin: 09/25/20 18:08 Dose: 650 mg Documented by: Albuterol (Proventil Neb Soln) 2.5 mg NEB Q2H PRN PRN Reason: Dyspnea Ascorbic Acid (Vitamin C) 1,000 mg PO DAILY [facility] Last Admin: 09/26/20 09:48 Dose: 1,000 mg Documented by: Atorvastatin Calcium (Lipitor) 40 mg PO BEDTIME [facility] Last Admin: 09/25/20 20:53 Dose: Not Given Documented by: Cholecalciferol (Vitamin D3) 20 mcg PO DAILY [facility] Last Admin: 09/26/20 09:48 Dose: 20 mcg Documented by: Enoxaparin Sodium (Lovenox) 40 mg SUBCUT BEDTIME [facility] Last Admin: 09/25/20 20:53 Dose: Not Given Documented by: Flumazenil (Romazicon) 0.2 mg IVPUSH ASDIRECTED PRN PRN Reason: Respiratory Depression Hydroxyzine HCl (Atarax) 25 mg PO Q4H PRN PRN Reason: Anxiety Lisinopril (Prinivil) 20 mg PO DAILY [facility] Last Admin: 09/26/20 09:49 Dose: 20 mg Documented by: Loperamide HCl (Imodium) 2 mg PO Q4H PRN PRN Reason: Diarrhea Lorazepam (Ativan) 0.5 mg IV Q4H PRN PRN Reason: Agitation Ondansetron HCl (Zofran) 4 mg IV Q4H PRN PRN Reason: Nausea/Vomiting Ondansetron HCl (Zofran Odt) 4 mg PO Q4H PRN PRN Reason: nausea, able to take PO Zinc Gluconate (Zinc) 200 mg PO DAILY [facility] Last Admin: 09/26/20 09:48 Dose: 200 mg Documented by: Discontinued Medications Sodium Chloride (Normal Saline) 1,000 mls @ 100 mls/hr IV ONETIME ONE Stop: 09/25/20 04:13 Last Admin: 09/24/20 19:25 Dose: 200 mls/hr Documented by: - Exam General: Alert, Oriented, Cooperative, No Acute Distress HEENT: Mucous Membr. Moist/[place] Neck: Supple, Trachea Midline, No Thyromegaly. No: Lymphadenopathy Lungs: Clear to Auscultation, Normal Respiratory Effort Cardiovascular: Regular Rate, Regular Rhythm GI/Abdominal Exam: Normal Bowel Sounds, Soft, Non-Tender, No Organomegaly, No Distention, No Mass Extremities: Non-Tender, No Pedal Edema, Normal Capillary Refill Peripheral Pulses: 2+: Radial (L), Radial (R) Skin: Warm, Dry, Intact Neurological: No New Focal Deficit Sepsis Event Note - Evaluation Sepsis Screening Result: No Definite Risk - Focused Exam Vital Signs: Vital Signs Temp Temp Pulse Resp BP BP Pulse Ox 09/26/20 14:00 36.4 C 61 20 135/70 92 L 09/26/20 09:49 132/65 09/26/20 09:42 36.4 C 84 20 132/65 91 L 09/26/20 06:00 94 L 09/26/20 05:46 37.1 C 76 18 146/78 H 91 L - Problem List & Annotations (1) COVID-19 SNOMED Code(s): 952389784 Code(s): U07.1 - COVID-19 Status: Acute Current Visit: Yes (2) Acute kidney injury SNOMED Code(s): 32663598, 33097659 Code(s): N17.9 - ACUTE KIDNEY FAILURE, UNSPECIFIED Status: Acute Current Visit: Yes (3) Dehydration SNOMED Code(s): 34157929 Code(s): E86.0 - DEHYDRATION Status: Acute Current Visit: Yes (4) BPH (benign prostatic hyperplasia) SNOMED Code(s): 385931839 Code(s): N40.0 - BENIGN PROSTATIC HYPERPLASIA WITHOUT LOWER URINRY TRACT SYMP Status: Chronic Current Visit: Yes Qualifiers: Lower urinary tract symptom presence: symptoms absent Qualified Code(s): N40.0 - Benign prostatic hyperplasia without lower urinary tract symptoms (5) Hypertension SNOMED Code(s): 07598980 Code(s): I10 - ESSENTIAL (PRIMARY) HYPERTENSION Status: Chronic Current Visit: Yes Qualifiers: Hypertension type: essential hypertension Qualified Code(s): I10 - Essential (primary) hypertension (6) Hyperlipidemia SNOMED Code(s): 25892846 Code(s): E78.5 - HYPERLIPIDEMIA, UNSPECIFIED Status: Chronic Current Visit: Yes Qualifiers: Hyperlipidemia type: unspecified Qualified Code(s): E78.5 - Hyperlipidemia, unspecified (7) Prediabetes SNOMED Code(s): 920887041 Code(s): R73.03 - PREDIABETES Status: Chronic Current Visit: Yes (8) Cognitive impairment SNOMED Code(s): 313002401 Code(s): R41.89 - OTH SYMPTOMS AND SIGNS W COGNITIVE FUNCTIONS AND AWARENESS Status: Chronic Current Visit: Yes - Problem List Review Problem List Initiated/Reviewed/Updated: Yes - My Orders Last 24 Hours: My Active Orders 09/26/20 08:32 Ready for Discharge [RC] PER UNIT ROUTINE - Assessment Assessment:: 80 yo male admitted with dehydration and PIPPA secondary to COVID related diarrhea. Labs worse again this morning; PO intake today has not been great. Now also have more frequent desaturations below 90%. - Plan Plan:: #1 COVID - Symptoms mainly GI. Improved overall but his appetite is still not adequate to maintain hydration. - Given more persistent desaturations today in the setting of CT findings on admission, will plan to resume supplemental oxygen titrated to goal of 94% or higher. - If he requires 2+ LPM via nasal cannula to maintain saturations > or = 94%, will start dexamethasone. - Will hold off on remdesivir for now but will discuss depending on his clinical status. Unclear whether this will still be beneficial when it is estimated he is >10 days from illness onset. - Continue vitamins and zinc. #2 PIPPA, secondary to #3 #3 Dehydration, secondary to #1 - Creatinine back up to 1.4 today, which is not far off his usual baseline of 1.2. Yesterday's creatinine was 1.1, which is actually likely better than baseline. - Given highly fluid sensitive nature of COVID, will be cautious with IV fluids. But based on poor intake today, will resume these at a rate of 50 cc/hr. - Will recheck lab tomorrow am. - Patient is encouraged to eat/drink as he is able to tolerate. - Agudelo removed yesterday without incident. #4 BPH - He is not currently on any medications for this. #5 Hypertension #6 Hyperlipidemia #7 Prediabetes - Continue lisinopril today but will plan to hold again tomorrow if creatinine trend worsening. - Continue statin as well. - Will continue to hold metformin while hospitalized. #8 Cognitive impairment - Progressing prior to current illness and plans in place for admission to [facility]. - If he is medically prepared for dismissal prior to being admitted to [facility], plan will be to do swing bed at [facility] until he is able to d/c there. Patient will remain on acute today - as above, had planned to transition to swing bed today but he is needing to resume oxygen and IV fluids as documented above. technology adoption manager consulted to assist with discharge planning. Code status is DNR/DNI - discussed with patient's guardian by admitting provider. He is on lovenox for VTE prophylaxis.
[2020-09-26] MEDS: Sodium Chloride 0.9% 1,000 ML IV SCH (15:19)
[2020-09-26] MEDS: Dexamethasone 4 MG Tab PO SCH (19:41)
[2020-09-26] MEDS: Enoxaparin 40 MG/0.4 ML Syringe SUBCUT SCH (19:42)
[2020-09-26] MEDS: atorvaSTATin 40 MG Tab PO SCH (19:42)
[2020-09-27] MEDS: Zinc (Zinc Gluconate) 50 MG Tab PO SCH (08:34)
[2020-09-27] MEDS: Dexamethasone 4 MG Tab PO SCH (08:34)
[2020-09-27] MEDS: Lisinopril 20 MG Tab PO SCH (08:35)
[2020-09-27] MEDS: Cholecalciferol (Vitamin D3) 10 MCG Tab PO SCH (08:35)
[2020-09-27] MEDS: Ascorbic Acid 500 MG Tab PO SCH (08:35)
[2020-09-27] MEDS: Sodium Chloride 0.9% 1,000 ML IV SCH (08:36)
--- NOTE | 2020-09-27 12:47 | PCM.PN ---
- General Info Date of Service: 09/27/20 Subjective Update: 80 yo hospital day #4 admitted for dehydration and PIPPA secondary to COVID. Patient states he is doing well today. He still does not want to each much but has not had any nausea or vomiting. He is having some trouble with coughing when he swallows, which started about 2 weeks ago. No sore throat. He denies any issues with taste or smell. He states he is coughing some now but denies any chest pain or shortness of breath. - Review of Systems General: Reports: No Symptoms HEENT: Reports: No Symptoms Pulmonary: Reports: No Symptoms Cardiovascular: Reports: No Symptoms Gastrointestinal: Reports: No Symptoms Genitourinary: Reports: No Symptoms Musculoskeletal: Reports: No Symptoms Skin: Reports: No Symptoms Neurological: Reports: No Symptoms Psychiatric: Reports: No Symptoms - Patient Data Vitals - Most Recent: Last Vital Signs Temp 36.4 C 09/27/20 10:00 Pulse 65 09/27/20 10:00 Resp 17 09/27/20 05:27 BP 132/79 09/27/20 10:00 Pulse Ox 94 L 09/27/20 10:00 Weight - Most Recent: 75.387 kg I&O - Last 24 Hours: Intake & Output 09/26/20 09/27/20 09/27/20 22:59 06:59 14:59 Intake Total 239 598 0 Balance 239 598 0 Lab Results Last 24 Hours: Laboratory Results - last 24 hr 09/26/20 09/27/20 09/27/20 Range/Units 19:40 05:54 06:33 WBC 7.5 (4.0-10.0) x10^3/uL RBC 4.29 L (4.5-6.0) x10^6/uL Hgb 13.8 L (14.0-18.0) g/dL Hct 42.7 (40.0-52.0) % MCV 99.5 H (78.0-93.0) fL MCH 32.2 H (26.0-32.0) pg MCHC 32.3 (32.0-36.0) g/dL RDW Coeff of Shantel 12.7 (10.0-15.0) % Plt Count 225 (130-400) x10^3/uL Add Manual Diff Yes Neutrophils % (Manual) 85 H (50-80) % Band Neutrophils % 4 (0-6) % Lymphocytes % (Manual) 2 L (25-50) % Reactive Lymphs % 3 H (0) % Monocytes % (Manual) 5 (2-11) % Eosinophils % (Manual) 1 (0-4) % Platelet Estimate Adequate Giant Platelets Rare H Macrocytosis 1+ slight H Sodium (136-145) mmol/L Potassium (3.5-5.1) mmol/L Chloride (98-107) mmol/L Carbon Dioxide (21-32) mmol/L Anion Gap (10-20) mmol/L BUN (7-18) mg/dL Creatinine (0.70-1.30) mg/dL Est Cr Clr Drug Dosing mL/min Estimated GFR (MDRD) Glucose (74-106) mg/dL POC Glucose 122 H 123 H (74-106) mg/dL Calcium (8.5-10.1) mg/dL 09/27/20 Range/Units 06:33 WBC (4.0-10.0) x10^3/uL RBC (4.5-6.0) x10^6/uL Hgb (14.0-18.0) g/dL Hct (40.0-52.0) % MCV (78.0-93.0) fL MCH (26.0-32.0) pg MCHC (32.0-36.0) g/dL RDW Coeff of Shantel (10.0-15.0) % Plt Count (130-400) x10^3/uL Add Manual Diff Neutrophils % (Manual) (50-80) % Band Neutrophils % (0-6) % Lymphocytes % (Manual) (25-50) % Reactive Lymphs % (0) % Monocytes % (Manual) (2-11) % Eosinophils % (Manual) (0-4) % Platelet Estimate Giant Platelets Macrocytosis Sodium 149 H (136-145) mmol/L Potassium 4.0 (3.5-5.1) mmol/L Chloride 114 H (98-107) mmol/L Carbon Dioxide 23 (21-32) mmol/L Anion Gap 16.0 (10-20) mmol/L BUN 35 H (7-18) mg/dL Creatinine 1.3 (0.70-1.30) mg/dL Est Cr Clr Drug Dosing 42.37 mL/min Estimated GFR (MDRD) 53 Glucose 150 H (74-106) mg/dL POC Glucose (74-106) mg/dL Calcium 8.7 (8.5-10.1) mg/dL Jose Antonio Results Last 24 Hours: Microbiology 09/24/20 17:45 Aerobic Blood Culture - Preliminary Blood - Venous - Lab Draw NO GROWTH AFTER 2 DAYS Anaerobic Blood Culture - Preliminary NO GROWTH AFTER 2 DAYS 09/24/20 16:55 Aerobic Blood Culture - Preliminary Blood - Venous NO GROWTH AFTER 2 DAYS Anaerobic Blood Culture - Preliminary NO GROWTH AFTER 2 DAYS Med Orders - Current: Current Medications Acetaminophen (Tylenol) 650 mg PO Q4H PRN PRN Reason: Pain (Mild 1-3)/fever Last Admin: 09/25/20 18:08 Dose: 650 mg Documented by: Albuterol (Proventil Neb Soln) 2.5 mg NEB Q2H PRN PRN Reason: Dyspnea Ascorbic Acid (Vitamin C) 1,000 mg PO DAILY [facility] Last Admin: 09/27/20 08:35 Dose: 1,000 mg Documented by: Atorvastatin Calcium (Lipitor) 40 mg PO BEDTIME [facility] Last Admin: 09/26/20 19:42 Dose: 40 mg Documented by: Cholecalciferol (Vitamin D3) 20 mcg PO DAILY [facility] Last Admin: 09/27/20 08:35 Dose: 20 mcg Documented by: Dexamethasone (Dexamethasone) 6 mg PO DAILY [facility] Stop: 10/06/20 15:46 Last Admin: 09/27/20 08:34 Dose: 6 mg Documented by: Enoxaparin Sodium (Lovenox) 40 mg SUBCUT BEDTIME [facility] Last Admin: 09/26/20 19:42 Dose: 40 mg Documented by: Hydroxyzine HCl (Atarax) 25 mg PO Q4H PRN PRN Reason: Anxiety Sodium Chloride (Normal Saline) 1,000 mls @ 50 mls/hr IV ASDIRECTED [facility] Last Admin: 09/27/20 08:36 Dose: 50 mls/hr Documented by: Lisinopril (Prinivil) 20 mg PO DAILY [facility] Last Admin: 09/27/20 08:35 Dose: 20 mg Documented by: Loperamide HCl (Imodium) 2 mg PO Q4H PRN PRN Reason: Diarrhea Ondansetron HCl (Zofran) 4 mg IV Q4H PRN PRN Reason: Nausea/Vomiting Ondansetron HCl (Zofran Odt) 4 mg PO Q4H PRN PRN Reason: nausea, able to take PO Zinc Gluconate (Zinc) 200 mg PO DAILY [facility] Last Admin: 09/27/20 08:34 Dose: 200 mg Documented by: Discontinued Medications Flumazenil (Romazicon) 0.2 mg IVPUSH ASDIRECTED PRN PRN Reason: Respiratory Depression Sodium Chloride (Normal Saline) 1,000 mls @ 100 mls/hr IV ONETIME ONE Stop: 09/25/20 04:13 Last Admin: 09/24/20 19:25 Dose: 200 mls/hr Documented by: Lorazepam (Ativan) 0.5 mg IV Q4H PRN PRN Reason: Agitation - Exam General: Alert, Cooperative, No Acute Distress HEENT: Mucous Membr. Moist/[place] Neck: Supple, Trachea Midline, No Thyromegaly Lungs: Clear to Auscultation, Normal Respiratory Effort Cardiovascular: Regular Rate, Regular Rhythm, No Murmurs GI/Abdominal Exam: Normal Bowel Sounds, Soft, Non-Tender, No Organomegaly, No Distention, No Mass Extremities: Non-Tender, No Pedal Edema, Normal Capillary Refill Peripheral Pulses: 2+: Radial (L), Radial (R) Skin: Warm, Dry, Intact Sepsis Event Note - Evaluation Sepsis Screening Result: No Definite Risk - Focused Exam Vital Signs: Vital Signs Temp Pulse Resp BP BP Pulse Ox 09/27/20 10:00 36.4 C 65 132/79 94 L 09/27/20 08:35 131/67 09/27/20 06:00 94 L 09/27/20 05:27 36.2 C 61 17 131/67 94 L 09/27/20 02:00 36.1 C 60 17 132/64 93 L - Problem List & Annotations (1) COVID-19 SNOMED Code(s): 509985776 Code(s): U07.1 - COVID-19 Status: Acute Current Visit: Yes (2) Acute kidney injury SNOMED Code(s): 96155291, 35453086 Code(s): N17.9 - ACUTE KIDNEY FAILURE, UNSPECIFIED Status: Acute Current Visit: Yes (3) Dehydration SNOMED Code(s): 70364960 Code(s): E86.0 - DEHYDRATION Status: Acute Current Visit: Yes (4) BPH (benign prostatic hyperplasia) SNOMED Code(s): 498383037 Code(s): N40.0 - BENIGN PROSTATIC HYPERPLASIA WITHOUT LOWER URINRY TRACT SYMP Status: Chronic Current Visit: Yes Qualifiers: Lower urinary tract symptom presence: symptoms absent Qualified Code(s): N40.0 - Benign prostatic hyperplasia without lower urinary tract symptoms (5) Hypertension SNOMED Code(s): 19186823 Code(s): I10 - ESSENTIAL (PRIMARY) HYPERTENSION Status: Chronic Current Visit: Yes Qualifiers: Hypertension type: essential hypertension Qualified Code(s): I10 - Essential (primary) hypertension (6) Hyperlipidemia SNOMED Code(s): 84408115 Code(s): E78.5 - HYPERLIPIDEMIA, UNSPECIFIED Status: Chronic Current Visit: Yes Qualifiers: Hyperlipidemia type: unspecified Qualified Code(s): E78.5 - Hyperlipidemia, unspecified (7) Prediabetes SNOMED Code(s): 920723984 Code(s): R73.03 - PREDIABETES Status: Chronic Current Visit: Yes (8) Cognitive impairment SNOMED Code(s): 414271477 Code(s): R41.89 - OTH SYMPTOMS AND SIGNS W COGNITIVE FUNCTIONS AND AWARENESS Status: Chronic Current Visit: Yes - Problem List Review Problem List Initiated/Reviewed/Updated: Yes - My Orders Last 24 Hours: My Active Orders 09/26/20 15:15 Sodium Chloride 0.9% [Normal Saline] 1,000 ml IV ASDIRECTED 09/26/20 15:45 dexAMETHasone 6 mg PO DAILY 09/27/20 11:13 Nursing Bedside Swallow Screen [RC] .PRN - Assessment Assessment:: 80 yo male admitted with dehydration and PIPPA secondary to COVID related diarrhea. Labs stable this morning; PO intake remains poor. O2 saturations stable on 2L via NC. - Plan Plan:: #1 COVID - Symptoms mainly GI but now with some cough. - Patient is again encouraged to eat and drink as he is able. Nursing will try some thickened liquids today. - Continue supplemental oxygen titrated to goal of 94% or higher. Patient often does not have this correctly positioned in his nose. - Continue dexamethasone. - Will hold off on remdesivir for now given current symptoms/stable oxygen requirements. Will reassess on a daily basis. - Continue vitamins and zinc. #2 PIPPA, secondary to #3 #3 Dehydration, secondary to #1 - Creatinine 1.3 today, which is not far off his usual baseline of 1.2. - Given highly fluid sensitive nature of COVID, will be cautious with IV fluids. But based on ongoing poor intake, will continue NS @ 50 cc/hr. - Will recheck lab tomorrow am. - Patient is encouraged to eat/drink as he is able to tolerate. - Agudelo removed 09/25 without incident. #4 BPH - He is not currently on any medications for this. #5 Hypertension #6 Hyperlipidemia #7 Prediabetes - Continue lisinopril. - Continue statin as well. - Will continue to hold metformin while hospitalized. #8 Cognitive impairment - Progressing prior to current illness and plans in place for admission to [facility]. - If he is medically prepared for dismissal prior to being admitted to [facility], plan will be to do swing bed at [facility] until he is able to d/c there. Patient will remain on acute today - still needing IV fluids and supplemental oxygen. trauma program manager consulted to assist with discharge planning. Code status is DNR/DNI - discussed with patient's guardian by admitting provider. He is on lovenox for VTE prophylaxis.
[2020-09-27] MEDS: atorvaSTATin 40 MG Tab PO SCH (20:15)
[2020-09-27] MEDS: Enoxaparin 40 MG/0.4 ML Syringe SUBCUT SCH (20:15)
[2020-09-28] MEDS: Sodium Chloride 0.9% 1,000 ML IV SCH (04:12)
[2020-09-28 08:39] LABS: CHLORIDE,CL 118 mmol/L (98-107); SODIUM,NA 151 mmol/L (136-145)
--- NOTE | 2020-09-28 11:57 | PN ---
Progress Note for SAVANNA ORTIZ Date: 09/28/2020 Room #: VM.206 SUBJECTIVE: Hospital day #4 for an 80-year-old male patient who was admitted for dehydration, acute kidney injury secondary to COVID. The patient states that he is feeling good today. The patient is really not eating much. He states he does not have an appetite. The patient denies any pain. The patient has not had any abdominal complaints. No nausea or vomiting. The patient states that he does cough; however, he does not have any shortness of breath or chest pain. The patient does have issues with swallowing. The patient appears to have issues with coughing when he tries to swallow. PHYSICAL EXAMINATION: Vital Signs: Temperature 97.1, pulse is 48, blood pressure 147/72, respiratory rate 20, oxygen saturation 96% on 2 L. General: The patient is alert. The patient is cooperative. The patient does not appear to be in any acute distress. Respiratory: Lungs are clear to auscultation, normal respiratory effort. Cardiovascular: Regular rate and rhythm, no murmurs. Abdomen: Bowel sounds are normoactive x4. Abdomen: Soft and nontender. Skin: Intact, warm and dry. Neurological: No focal neurological deficits. The patient is alert. The patient is cooperative. LABORATORY STUDIES: CBC: WBCs are 7.8, hemoglobin 13.2, hematocrit 40.7, platelets are 250,000. CMP: Sodium 151, potassium 4.0, chloride 118, CO2 is 24, anion gap is 13.0, BUN is 37, creatinine 1.1, GFR is greater than 60, glucose 135, calcium 8.5, AST 21, ALT 23, alkaline phosphatase 37, total protein 6.8. Ferritin 2233. C-reactive protein 5.6. ASSESSMENT: 1. COVID-19. 2. Acute kidney injury. 3. Dehydration. 4. BPH. 5. Hypertension. 6. Hyperlipidemia. 7. Prediabetes. 8. Cognitive impairment. PLAN: An 80-year-old male patient admitted for dehydration and acute kidney injury secondary to COVID, possibly related to diarrhea. The patient has an elevated ferritin as well as CRP. We will continue the patient on dexamethasone. The patient does not meet criteria for remdesivir at this point. We will continue to monitor this patient's respiratory status closely. Concern is the patient's poor p.o. intake. The patient will remain on very gentle hydration. We will recheck laboratory work tomorrow. Continue acute cares for now given the patient's current status and needing oxygen. TB: 09/28/2020 11:16:48 MODL: 09/28/2020 11:46:17 /[id number]
[2020-09-28] MEDS: Lisinopril 20 MG Tab PO SCH (12:39)
[2020-09-28] MEDS: Cholecalciferol (Vitamin D3) 10 MCG Tab PO SCH (12:39)
[2020-09-28] MEDS: Zinc (Zinc Gluconate) 50 MG Tab PO SCH (12:39)
[2020-09-28] MEDS: Ascorbic Acid 500 MG Tab PO SCH (12:39)
[2020-09-28] MEDS: Dexamethasone 4 MG Tab PO SCH (12:40)
[2020-09-28] MEDS: atorvaSTATin 40 MG Tab PO SCH (20:49)
[2020-09-28] MEDS: Enoxaparin 40 MG/0.4 ML Syringe SUBCUT SCH (20:49)
[2020-09-29] MEDS: Sodium Chloride 0.9% 1,000 ML IV SCH (00:16)
[2020-09-29 08:49] LABS: ANION GAP 13.6 mmol/L (10-20)
[2020-09-29] MEDS ORDERED: Sodium Chloride 0.45% 1,000 ML IV SCH (09:30)
[2020-09-29] MEDS ORDERED: Dexamethasone 4 MG/ML SDV IVPUSH SCH (11:00)
[2020-09-29] MEDS: Ascorbic Acid 500 MG Tab PO SCH (11:35)
[2020-09-29] MEDS: Zinc (Zinc Gluconate) 50 MG Tab PO SCH (11:35)
[2020-09-29] MEDS: Cholecalciferol (Vitamin D3) 10 MCG Tab PO SCH (11:35)
[2020-09-29] MEDS: Lisinopril 20 MG Tab PO SCH (11:35)
[2020-09-29] MEDS: Dexamethasone 4 MG Tab PO SCH (11:35)
--- NOTE | 2020-09-29 12:20 | PN ---
Progress Note for SAVANNA ORTIZ Date: 09/29/2020 Room #: VM.206 CHIEF COMPLAINT: Dehydration, COVID-19 infection OBJECTIVE: Hospital day #6 for an 80-year-old male patient admitted for dehydration, acute kidney injury secondary to COVID. The patient is somewhat lethargic today. The patient states he does not have an appetite. The patient does not want anything to eat or drink. The patient states that he feels weak. The patient denies any cough or shortness of breath. The patient does not have any chest pain or palpitation. The patient denies any abdominal complaints. He has some nausea with medication administration. The patient has not had any diarrhea. The patient has had minimal urine output. The patient denies any headache, dizziness, or lightheadedness. Additional information obtained from nursing staff. PHYSICAL EXAMINATION: Vital Signs: Temperature 96.6, pulse 46, blood pressure 153/78, respiratory rate 16, and oxygen saturation 99% on room air. General: Patient is alert. Patient is cooperative. The patient does not appear to be in any acute distress. Respiratory: Lungs are clear. Cardiovascular: Bradycardic rate. Regular rhythm, no murmurs. Abdomen: Bowel sounds hypoactive x4, nontender, and soft. Skin: Intact, warm and dry. Neurological: The patient is somewhat lethargic and slow to respond. The patient is alert. The patient is cooperative. LABORATORY STUDIES: CBC: White blood cell count 8.2, hemoglobin 14.5, hematocrit 44.3, platelets are 263,000, neutrophils 85%, lymphocytes 12%. CMP: Sodium of 152, potassium 3.6, chloride 117, CO2 of 25, anion gap 13.6, BUN is 33, creatinine 1.2, GFR 58, glucose 112, calcium 8.6, AST 27, ALT 27, alkaline phosphatase 43, total protein 7.3. CRP 3.3. ASSESSMENT: 1. COVID-19. 2. Acute kidney injury. 3. Hypernatremia. 4. Dehydration. 5. BPH. 6. Hypertension. 7. Hyperlipidemia. 8. Prediabetes. 9. Cognitive impairment. 10. Failure to Thrive PLAN: Hospital day #6 for an 80-year-old male patient who was admitted for dehydration, acute kidney injury secondary to COVID-19, possibly related to diarrhea. The patient will be on acute cares for worsening hypernatremia, lethargy, and poor p.o. intake. We will switch the patient over to IV Zofran and dexamethasone. Continue with remdesivir as his GFR is greater than 30. Continue to watch respiratory status closely. Concern is with poor p.o. intake. The patient is showing signs of possible aspiration which needs to be watched closely. We will institute aspiration precautions today. Recheck laboratory work tomorrow. Will gently rehydrate patient with 0.45 NS to try and drive down sodium. Monitor respiratory status closely. Suspect patient will need a swallow study. TB: 09/29/2020 11:36:07 MODL: 09/29/2020 12:16:15 /[id number] SELMA
[2020-09-29] MEDS: atorvaSTATin 40 MG Tab PO SCH (20:20)
[2020-09-29] MEDS: Enoxaparin 40 MG/0.4 ML Syringe SUBCUT SCH (20:20)
[2020-09-30 07:14] LABS: CHLORIDE,CL 115 mmol/L (98-107); SODIUM,NA 148 mmol/L (136-145)
[2020-09-30 07:21] LABS: ANION GAP 11.9 mmol/L (10-20)
[2020-09-30] MEDS: Ascorbic Acid 500 MG Tab PO SCH (09:03)
[2020-09-30] MEDS: Dexamethasone 4 MG Tab PO SCH (09:03)
[2020-09-30] MEDS: Zinc (Zinc Gluconate) 50 MG Tab PO SCH (09:03)
[2020-09-30] MEDS: Lisinopril 20 MG Tab PO SCH (09:04)
[2020-09-30] MEDS: Cholecalciferol (Vitamin D3) 10 MCG Tab PO SCH (09:06)
--- NOTE | 2020-09-30 19:02 | DISCH ---
PRIMARY DISCHARGE DIAGNOSIS: Coronavirus disease 19 infection. SECONDARY DIAGNOSES: 1. Acute renal failure secondary to volume depletion from diarrhea from coronavirus disease 19 infection. 2. Acute hypoxic respiratory failure due to coronavirus disease 19 infection. 3. COVID 19 infection 4. Benign prostatic hyperplasia. 5. Essential hypertension. 6. Hyperlipidemia. 7. Prediabetes. 8. 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 REASON FOR ADMISSION: On the date of admission, this 80-year-old male who normally lives independently at home with some family checking in on him was lethargic. He had been having diarrhea for over a week. He had vomited. He was found to have a COVID-19 infection and was given IV fluids. He had a catheter for 24 hours. His urine output was good. Unfortunately, he did not have a very good appetite. Therefore, dexamethasone, which was started, was switched over to IV, but yesterday he started eating. His sodium actually did also go up to 152, but he was started on half-normal saline. He is now off fluids this morning and asking to drink water and his sodium is at 148. Creatinine is back down to 1.1. His lisinopril and metformin medications had been on hold. The patient is denying any pain. He still has a little bit of a cough per staff. He is now off oxygen and his sats which were 92% this morning came up to 97% by 10 a.m. OBJECTIVE: Vital Signs: His temperature is 96.8, his blood pressure 163/68, pulse 46, respiratory rate 17, and again by the time of this dictation, his oxygen saturation was up to 97%. General: He is in no acute distress. Heart: Regular rate and rhythm. S1, S2 without murmur. Lungs: Sounds are clear to auscultation bilaterally without crackles or wheezes. Abdomen: Has positive bowel sounds. Soft, nontender. Extremities: Warm and dry. No edema. Mental Status: He answers yes or no appropriately. He seems to understand what I am saying when I speak in simple sentences. LABORATORY WORK: Blood sugar 153. White count 7.6, hemoglobin 13.3, platelets 232. Sodium 148, potassium 3.9, chloride 115, bicarb 25, BUN 25, creatinine 1.1, glucose 90, calcium 8.3. ALT/AST normal. Bilirubin normal. Alk phos 40, albumin 2.4. ASSESSMENT: 1. Coronavirus disease 19 infection, acute renal failure, resolved. Diarrhea due to coronavirus disease 19 infection, resolved. Acute hypoxic respiratory failure due to coronavirus disease 19 resolved. He will complete his course of dexamethasone. 2. Essential hypertension, not well controlled, he is back on lisinopril. 3. Deep venous thrombosis prophylaxis. We will continue Lovenox. 4. Hyperlipidemia. Continue statin. 5. Prediabetes. Accu-Cheks are acceptable. Will consider restarting metformin if needed. 6. Cognitive impairment and reported mental retardation. I have updated his guardian, Lupe Breaux, and she agrees with the plan of care for swing bed and eventual transfer to a facility, maybe basic care [facility] in [place] I believe. Jewish History Professor is also involved. 7. Deconditioning transfer to swing bed for further therapies MKA: 09/30/2020 15:35:33 MODL: 09/30/2020 18:54:33 /[id number] MTDD
== END 2020-09-30 11:02 | disposition swing bed (61) | DRG 177 ==
LOC: VM.ED 16:23 → VM.MS 21:24
PROVIDERS: ADMIT Internal Medicine; ATTEND Internal Medicine
DX: U07.1 COVID-19 (principal); R41.0 Disorientation, unspecified; J96.01 Acute respiratory failure with hypoxia; N17.9 Acute kidney failure, unspecified; I10 Essential (primary) hypertension; Z66 Do not resuscitate; G31.84 Mild cognitive impairment of uncertain or unknown etiology; R73.03 Prediabetes; F79 Unspecified intellectual disabilities; E78.2 Mixed hyperlipidemia; N40.1 Benign prostatic hyperplasia with lower urinary tract symptoms; E86.0 Dehydration; Z79.84 Long term (current) use of oral hypoglycemic drugs; Z79.899 Other long term (current) drug therapy; Z87.891 Personal history of nicotine dependence
CPT/HCPCS: 36415; 51702; 70450; 71045; 71250; 72128; 72131; 80048; 80053; 81001; 82728; 82962; 83605; 83615; 84484; 85025; 85610; 86140; 87040; 87804; 87804-59; 97110-GP; 97161-GP; 97530-GP; 99284; 99285-25; A9270-GY; J1100; J1650; J2405; J7030; J8540; U0002

== ENCOUNTER 2020-09-30 09:55 | Inpatient (IN) | payer SELFPAY ==
[2020-09-30] MEDS ORDERED: Loperamide 2 MG Cap PO PRN (14:07)
[2020-09-30] MEDS ORDERED: Acetaminophen 325 MG Tab PO PRN (14:07)
[2020-09-30] MEDS ORDERED: Ondansetron 4 MG Tab.DIS PO PRN (14:07)
[2020-09-30] MEDS ORDERED: hydrOXYzine HCl 25 MG Tab PO PRN (14:08)
[2020-09-30] MEDS ORDERED: Albuterol HFA 18 Gm Inhaler INH PRN (14:11)
[2020-09-30] MEDS: Enoxaparin 40 MG/0.4 ML Syringe SUBCUT SCH (19:55)
[2020-09-30] MEDS: atorvaSTATin 40 MG Tab PO SCH (19:56)
[2020-10-01] MEDS ORDERED: Lisinopril 20 MG Tab PO SCH (08:00)
[2020-10-01] MEDS ORDERED: Dexamethasone 4 MG Tab PO SCH (08:00)
[2020-10-01] MEDS: Zinc (Zinc Gluconate) 50 MG Tab PO SCH (10:04)
[2020-10-01] MEDS: Cholecalciferol (Vitamin D3) 10 MCG Tab PO SCH (10:04)
[2020-10-01] MEDS: Ascorbic Acid 500 MG Tab PO SCH (10:05)
[2020-10-01] MEDS: Dexamethasone 4 MG Tab PO SCH (10:05)
[2020-10-01] MEDS: Lisinopril 20 MG Tab PO SCH (10:06)
[2020-10-01] MEDS: Enoxaparin 40 MG/0.4 ML Syringe SUBCUT SCH (20:48)
[2020-10-01] MEDS: atorvaSTATin 40 MG Tab PO SCH (20:48)
[2020-10-02 08:09] LABS: CHLORIDE,CL 111 mmol/L (98-107); SODIUM,NA 145 mmol/L (136-145)
[2020-10-02 08:10] LABS: ANION GAP 9.5 mmol/L (10-20)
[2020-10-02] MEDS: Ascorbic Acid 500 MG Tab PO SCH (09:23)
[2020-10-02] MEDS: Dexamethasone 4 MG Tab PO SCH (09:23)
[2020-10-02] MEDS: Zinc (Zinc Gluconate) 50 MG Tab PO SCH (09:23)
[2020-10-02] MEDS: Cholecalciferol (Vitamin D3) 10 MCG Tab PO SCH (09:24)
[2020-10-02] MEDS: Lisinopril 20 MG Tab PO SCH (09:27)
[2020-10-02] MEDS: atorvaSTATin 40 MG Tab PO SCH (19:44)
[2020-10-02] MEDS: Enoxaparin 40 MG/0.4 ML Syringe SUBCUT SCH (19:45)
[2020-10-03] MEDS: Zinc (Zinc Gluconate) 50 MG Tab PO SCH (08:54)
[2020-10-03] MEDS: Lisinopril 20 MG Tab PO SCH (08:55)
[2020-10-03] MEDS: Dexamethasone 4 MG Tab PO SCH (08:55)
[2020-10-03] MEDS: Ascorbic Acid 500 MG Tab PO SCH (08:55)
[2020-10-03] MEDS: Cholecalciferol (Vitamin D3) 10 MCG Tab PO SCH (08:55)
[2020-10-03] MEDS: atorvaSTATin 40 MG Tab PO SCH (20:40)
[2020-10-03] MEDS: Enoxaparin 40 MG/0.4 ML Syringe SUBCUT SCH (20:40)
[2020-10-04] MEDS: Lisinopril 20 MG Tab PO SCH (08:52)
[2020-10-04] MEDS: Ascorbic Acid 500 MG Tab PO SCH (08:53)
[2020-10-04] MEDS: Zinc (Zinc Gluconate) 50 MG Tab PO SCH (08:53)
[2020-10-04] MEDS: Cholecalciferol (Vitamin D3) 10 MCG Tab PO SCH (08:53)
[2020-10-04] MEDS: atorvaSTATin 40 MG Tab PO SCH (20:23)
[2020-10-04] MEDS: Enoxaparin 40 MG/0.4 ML Syringe SUBCUT SCH (20:24)
[2020-10-05] MEDS: Lisinopril 20 MG Tab PO SCH (08:39)
[2020-10-05] MEDS: Ascorbic Acid 500 MG Tab PO SCH (08:40)
[2020-10-05] MEDS: Cholecalciferol (Vitamin D3) 10 MCG Tab PO SCH (08:40)
[2020-10-05] MEDS: Zinc (Zinc Gluconate) 50 MG Tab PO SCH (08:40)
[2020-10-05] MEDS: atorvaSTATin 40 MG Tab PO SCH (19:25)
[2020-10-05] MEDS: Enoxaparin 40 MG/0.4 ML Syringe SUBCUT SCH (19:25)
[2020-10-06] MEDS: Zinc (Zinc Gluconate) 50 MG Tab PO SCH (07:40)
[2020-10-06] MEDS: Lisinopril 20 MG Tab PO SCH (07:40)
[2020-10-06] MEDS: Cholecalciferol (Vitamin D3) 10 MCG Tab PO SCH (07:40)
[2020-10-06] MEDS: Ascorbic Acid 500 MG Tab PO SCH (07:40)
[2020-10-06] MEDS: Enoxaparin 40 MG/0.4 ML Syringe SUBCUT SCH (20:53)
[2020-10-06] MEDS: atorvaSTATin 40 MG Tab PO SCH (20:54)
[2020-10-07 07:20] LABS: ANION GAP 12.3 mmol/L (10-20)
[2020-10-07] MEDS: Lisinopril 20 MG Tab PO SCH (10:06)
[2020-10-07] MEDS: Zinc (Zinc Gluconate) 50 MG Tab PO SCH (10:08)
[2020-10-07] MEDS: Ascorbic Acid 500 MG Tab PO SCH (10:10)
[2020-10-07] MEDS: Cholecalciferol (Vitamin D3) 10 MCG Tab PO SCH (10:11)
[2020-10-07] MEDS: Potassium Chloride 10 MEQ Tab.ER PO SCH (12:41)
[2020-10-07] MEDS: atorvaSTATin 40 MG Tab PO SCH ×2 (19:35→19:38)
[2020-10-07] MEDS: Enoxaparin 40 MG/0.4 ML Syringe SUBCUT SCH (19:35)
[2020-10-08] MEDS: Lisinopril 20 MG Tab PO SCH (10:03)
[2020-10-08] MEDS: Potassium Chloride 10 MEQ Tab.ER PO SCH (10:03)
[2020-10-08] MEDS: Cholecalciferol (Vitamin D3) 10 MCG Tab PO SCH (10:05)
[2020-10-08] MEDS: Ascorbic Acid 500 MG Tab PO SCH (10:05)
[2020-10-08] MEDS: Zinc (Zinc Gluconate) 50 MG Tab PO SCH (10:05)
[2020-10-08] MEDS: atorvaSTATin 40 MG Tab PO SCH (19:36)
[2020-10-08] MEDS: Enoxaparin 40 MG/0.4 ML Syringe SUBCUT SCH (19:37)
[2020-10-09] MEDS: Lisinopril 20 MG Tab PO SCH (10:09)
[2020-10-09] MEDS: Potassium Chloride 10 MEQ Tab.ER PO SCH (10:09)
[2020-10-09] MEDS: Ascorbic Acid 500 MG Tab PO SCH (10:10)
[2020-10-09] MEDS: Cholecalciferol (Vitamin D3) 10 MCG Tab PO SCH (10:11)
[2020-10-09] MEDS: Zinc (Zinc Gluconate) 50 MG Tab PO SCH (10:11)
[2020-10-09] MEDS: atorvaSTATin 40 MG Tab PO SCH (20:13)
[2020-10-09] MEDS: Enoxaparin 40 MG/0.4 ML Syringe SUBCUT SCH (20:13)
[2020-10-10] MEDS: Potassium Chloride 10 MEQ Tab.ER PO SCH (09:19)
[2020-10-10] MEDS: Ascorbic Acid 500 MG Tab PO SCH (09:20)
[2020-10-10] MEDS: Zinc (Zinc Gluconate) 50 MG Tab PO SCH (09:20)
[2020-10-10] MEDS: Cholecalciferol (Vitamin D3) 10 MCG Tab PO SCH (09:20)
[2020-10-10] MEDS: Lisinopril 20 MG Tab PO SCH (09:20)
[2020-10-10] MEDS: atorvaSTATin 40 MG Tab PO SCH (19:29)
[2020-10-10] MEDS: Enoxaparin 40 MG/0.4 ML Syringe SUBCUT SCH (19:29)
[2020-10-11 07:28] LABS: ANION GAP 8.7 mmol/L (10-20)
[2020-10-11] MEDS: Lisinopril 20 MG Tab PO SCH (07:56)
[2020-10-11] MEDS: Potassium Chloride 10 MEQ Tab.ER PO SCH (07:56)
[2020-10-11] MEDS: Cholecalciferol (Vitamin D3) 10 MCG Tab PO SCH (07:56)
--- NOTE | 2020-10-11 20:44 | PN ---
Progress Note for SAVANNA ORTIZ Date: 10/11/2020 Room #: VM.204 SUBJECTIVE: An 80-year-old with limited mental capacity, who lives by himself, but has a guardian and others who look after him in [place], presented on 09/24 with a COVID-19 infection with the primary symptom being diarrhea. He had been sick for over a week and a half. At that time, he was admitted and treated for dehydration with IV fluids. Initially, he did not meet criteria for remdesivir, but did eventually end up getting some dexamethasone. He used oxygen very limited. He overall is doing well, working with therapies, progressing appropriately. He does have diabetes, but his blood sugars were all well controlled after being off the dexamethasone. He denies any cough or shortness of breath. OBJECTIVE: Vital Signs: His temperature is 97.4, pulse 59, blood pressure 106/52, respiratory rate 18, O2 of 94% on room air. General: He is in no acute distress. Heart: Regular rate and rhythm. S1, S2 without murmur. Lungs: Sounds are clear to auscultation bilaterally without crackles or wheezes. Abdomen: Has positive bowel sounds. Soft, nontender. Extremities: Warm and dry. No edema. Mental Status: He is alert. He is oriented x3. He is aware he is in the hospital. He does not recognize me. Have not seen him for part of this week other than waving from the [place]. LABORATORY WORK: Did show him to have a white count of 7.4, hemoglobin 12.6, platelets 176. Sodium 144, potassium 3.7, chloride 109, bicarb 30, BUN 15, creatinine 1.2, glucose 148, calcium 8.5, magnesium 2.0. ASSESSMENT: 1. Coronavirus disease 19 infection, recovered. 2. Essential hypertension, controlled. He is on his home medications with lisinopril. 3. Prediabetes. Blood sugars have been controlled. His metformin was discontinued. We can restart if needed. 4. Deep venous thrombosis prophylaxis. He has been on Lovenox. We will go ahead and discontinue. 5. Hyperlipidemia. Continue his statin. 6. Cognitive impairment and reported mental retardation. Per conversations previously with his guardian, we would like to get him into a facility like [facility], possibly in [place]. Physical Therapy feels he will be stable and ready for discharge next week around Wednesday. PLAN: The patient will continue on swing bed cares. I will discontinue Lovenox. No further lab work due. He has required some p.r.n. laxatives. He is no longer having diarrhea. We will get an OT cognitive eval also. MKA: 10/11/2020 20:06:48 MODL: 10/11/2020 20:38:58 /[id number] MTDTenzin
[2020-10-11] MEDS: atorvaSTATin 40 MG Tab PO SCH (20:48)
[2020-10-11] MEDS: Enoxaparin 40 MG/0.4 ML Syringe SUBCUT SCH (20:49)
[2020-10-12] MEDS: Cholecalciferol (Vitamin D3) 10 MCG Tab PO SCH (08:31)
[2020-10-12] MEDS: Potassium Chloride 10 MEQ Tab.ER PO SCH (08:33)
[2020-10-12] MEDS: Lisinopril 20 MG Tab PO SCH (08:34)
[2020-10-12] MEDS: atorvaSTATin 40 MG Tab PO SCH (21:10)
[2020-10-13] MEDS: Cholecalciferol (Vitamin D3) 10 MCG Tab PO SCH (07:51)
[2020-10-13] MEDS: Lisinopril 20 MG Tab PO SCH (07:51)
[2020-10-13] MEDS ORDERED: Potassium Chloride 10% 20 MEQ/15 ML Soln 15 ML UD Cup PO SCH (08:00)
[2020-10-13] MEDS: atorvaSTATin 40 MG Tab PO SCH (21:34)
[2020-10-14] MEDS: Cholecalciferol (Vitamin D3) 10 MCG Tab PO SCH (09:22)
[2020-10-14] MEDS: Lisinopril 20 MG Tab PO SCH (09:22)
[2020-10-14] MEDS: atorvaSTATin 40 MG Tab PO SCH (19:40)
[2020-10-15] MEDS ORDERED: Lisinopril 2.5 MG Tab PO SCH (08:00)
[2020-10-15] MEDS: Cholecalciferol (Vitamin D3) 10 MCG Tab PO SCH (08:45)
[2020-10-15] MEDS: atorvaSTATin 40 MG Tab PO SCH (20:01)
[2020-10-16] MEDS: Cholecalciferol (Vitamin D3) 10 MCG Tab PO SCH (07:38)
[2020-10-16] MEDS: Lisinopril 5 MG Tab PO SCH (07:38)
[2020-10-16] MEDS: atorvaSTATin 40 MG Tab PO SCH (20:48)
[2020-10-17] MEDS: Lisinopril 5 MG Tab PO SCH (08:43)
[2020-10-17] MEDS: Cholecalciferol (Vitamin D3) 10 MCG Tab PO SCH (08:43)
[2020-10-17] MEDS: atorvaSTATin 40 MG Tab PO SCH (19:49)
[2020-10-18] MEDS: Lisinopril 5 MG Tab PO SCH (09:02)
[2020-10-18] MEDS: Cholecalciferol (Vitamin D3) 10 MCG Tab PO SCH (09:02)
--- NOTE | 2020-10-18 14:51 | DISCH ---
PRIMARY DISCHARGE DIAGNOSIS: Coronavirus disease 2019 infection. SECONDARY DISCHARGE DIAGNOSES: 1. Diarrhea and volume depletion and dehydration due to coronavirus disease 2019, resolved. 2. Essential hypertension, controlled. Did need to decrease his lisinopril. 3. Prediabetes, controlled. Metformin discontinued. 4. Deep vein thrombosis prophylaxis. He had been on Lovenox that had been discontinued. 5. Hyperlipidemia, on statins. 6. Cognitive impairment and reported mental retardation. The patient does have a guardian. REASON FOR ADMISSION: On the date of admission, this 80-year-old with limited mental capacity, who lives by himself, but had others who looked after him in a small community, was brought in to [facility] on 09/24 for diarrhea, being sick over a week and a half. He was found to be COVID positive. He was given IV fluids. He did end up getting dexamethasone as well. He used very limited oxygen and overall, the patient recovered. The patient was possibly going to go to a basic care facility in [place], but he refused. Therefore, accommodations are being made in his home for him to be able to return there sometime next week, but things are just not ready yet per [employer] Surveyor. The patient is being discharged from skilled therapies as he completed PT on the and is transitioned over to non-skilled self-pay swing. DISCHARGE PLANS AND INSTRUCTIONS: The patient is on non-skilled self-pay swing bed. Last lab work was acceptable. We may repeat one more time before discharge. We will keep the medications the same with the decreased doses of lisinopril at 5 mg daily as the 20 mg dose did have to be held. PHYSICAL EXAMINATION: Vital Signs: His discharge vitals included temperature 98.2, pulse 69, blood pressure 123/70, respiratory rate 17, and O2 of 94% on room air. General: He is in no acute distress. Heart: Regular rate and rhythm. S1, S2 without murmur. Chest: Lungs sounds are clear to auscultation bilaterally without crackles or wheezes. Abdomen: Has positive bowel sounds. Soft, nontender. Extremities: Warm and dry. No edema. Mental Status: He is alert. He is aware he is in the hospital. He talks about going home. MKA: 10/18/2020 14:11:55 MODL: 10/18/2020 14:45:25 /[id number]
[2020-10-18] MEDS: atorvaSTATin 40 MG Tab PO SCH (23:52)
[2020-10-19] MEDS: Lisinopril 5 MG Tab PO SCH (09:36)
[2020-10-19] MEDS: Cholecalciferol (Vitamin D3) 10 MCG Tab PO SCH (09:37)
[2020-10-19] MEDS: atorvaSTATin 40 MG Tab PO SCH (19:43)
[2020-10-20] MEDS: Cholecalciferol (Vitamin D3) 10 MCG Tab PO SCH (08:53)
[2020-10-20] MEDS: Lisinopril 5 MG Tab PO SCH (08:55)
[2020-10-20] MEDS: atorvaSTATin 40 MG Tab PO SCH (20:08)
[2020-10-21] MEDS: Cholecalciferol (Vitamin D3) 10 MCG Tab PO SCH (09:02)
[2020-10-21] MEDS: Lisinopril 5 MG Tab PO SCH (09:02)
[2020-10-21] MEDS: atorvaSTATin 40 MG Tab PO SCH (20:28)
[2020-10-22] MEDS: Cholecalciferol (Vitamin D3) 10 MCG Tab PO SCH (07:49)
[2020-10-22] MEDS: Lisinopril 5 MG Tab PO SCH (07:50)
[2020-10-22] MEDS: atorvaSTATin 40 MG Tab PO SCH (19:35)
[2020-10-23] MEDS: Lisinopril 5 MG Tab PO SCH (09:26)
[2020-10-23] MEDS: Cholecalciferol (Vitamin D3) 10 MCG Tab PO SCH (09:29)
[2020-10-23] MEDS: atorvaSTATin 40 MG Tab PO SCH (19:18)
[2020-10-24] MEDS: Lisinopril 5 MG Tab PO SCH (09:08)
[2020-10-24] MEDS: Cholecalciferol (Vitamin D3) 10 MCG Tab PO SCH (09:08)
[2020-10-24] MEDS: atorvaSTATin 40 MG Tab PO SCH (22:14)
[2020-10-25] MEDS: Cholecalciferol (Vitamin D3) 10 MCG Tab PO SCH (07:57)
[2020-10-25] MEDS: Lisinopril 5 MG Tab PO SCH (07:57)
[2020-10-25] MEDS: atorvaSTATin 40 MG Tab PO SCH (20:15)
[2020-10-26] MEDS: Cholecalciferol (Vitamin D3) 10 MCG Tab PO SCH (07:34)
[2020-10-26] MEDS: Lisinopril 5 MG Tab PO SCH (07:35)
[2020-10-26] MEDS: atorvaSTATin 40 MG Tab PO SCH (19:37)
[2020-10-27] MEDS: Lisinopril 5 MG Tab PO SCH (07:39)
[2020-10-27] MEDS: Cholecalciferol (Vitamin D3) 10 MCG Tab PO SCH (07:39)
[2020-10-27] MEDS: atorvaSTATin 40 MG Tab PO SCH (20:02)
[2020-10-28] MEDS: Cholecalciferol (Vitamin D3) 10 MCG Tab PO SCH (07:25)
[2020-10-28] MEDS: Lisinopril 5 MG Tab PO SCH (07:25)
--- NOTE | 2020-10-28 18:35 | DISCH ---
DATE OF SELF-PAY SWING BED: 10/18/2020. DATE OF ACUTE CARE ADMISSION: 09/24/2020. PRIMARY DISCHARGE DIAGNOSES: 1. A coronavirus disease 19 infection. 2. Diarrhea with volume depletion and dehydration, resolved. 3. Essential hypertension, controlled. Lisinopril decreased to 5 mg. 4. Prediabetes, controlled. Metformin discontinued. 5. Deep venous thrombosis prophylaxis. His Lovenox was discontinued on swing bed. 6. Hyperlipidemia, on statins. 7. Cognitive impairment with reported mental retardation. The patient does have a guardian. REASON FOR ADMISSION: On the date of admission, this 80-year-old male who lives in [place] has limited mental capacity, but has considerable family and community support, was brought to the ER for diarrhea. He had been having symptoms for over a week. He was COVID positive. He was given IV fluids. He had no respiratory symptoms initially, but later on developed them and was given some dexamethasone and did require oxygen for a short time. He was weak after this acute stay, so was placed on swing bed and did work with therapies. At one point was possibly going to go to a basic care facility. However, in the end, decision was made by the patient's family guardian and the patient himself to return home with some caregiver support. DISCHARGE PLANS AND INSTRUCTIONS: The patient is returning home. His caregiver, Lupe Breaux, had called and spoke with the nurse prior to discharge. I also spoke with Technology Engineer and the patient is not requiring any additional home health other than his [facility] services. His medication changes were stated that he will now be on lisinopril 5 mg daily and off metformin. He will also be on vitamin D, which I recommend him to take this winter. He will follow up with Reji Palencia in 1 to 2 weeks' time. No lab work is due. PHYSICAL EXAMINATION: Vital Signs: Temperature 97.4, pulse 82, blood pressure 118/69, respiratory rate 16, and O2 of 95% on room air. General: He is in no acute distress. Heart: Regular rate and rhythm. S1, S2 without murmur. Lungs: Sounds are clear to auscultation bilaterally without crackles or wheezes. Extremities: Warm and dry. No edema. He is up. He is walking. He is ambulating the halls. He is in good spirits. He actually told the staff he loved us. MKA: 10/28/2020 16:36:56 MODL: 10/28/2020 18:28:51 /[id number]
== END 2020-10-28 10:20 | disposition home or self-care (01) | DRG 948 ==
LOC: VM.MS 11:27
PROVIDERS: ADMIT Internal Medicine; ATTEND Internal Medicine
DX: R53.81 Other malaise (principal); G31.84 Mild cognitive impairment of uncertain or unknown etiology; E86.0 Dehydration; I10 Essential (primary) hypertension; R73.03 Prediabetes; E78.5 Hyperlipidemia, unspecified; Z79.84 Long term (current) use of oral hypoglycemic drugs; F79 Unspecified intellectual disabilities
CPT/HCPCS: 36415; 80048; 82962; 83735; 85025; 97110-GP; 97116-GP; 97129-GO; 97165-GO; 97530-GP; 97535-GO; A9270-GY; J1650; J8540

== ENCOUNTER 2021-02-15 19:44 | Observation (INO) | payer MEDICARE ==
--- NOTE | 2021-02-15 20:05 | EDM.PDOC ---
ED HPI GENERAL MEDICAL PROBLEM - General Chief Complaint: General Stated Complaint: Weakness, Covid injection yestreday Time Seen by Provider: 02/15/21 20:05 Source of Information: Reports: Patient, RN, RN Notes Reviewed History Limitations: Reports: Other (Cognitively impaired) - History of Present Illness INITIAL COMMENTS - FREE TEXT/NARRATIVE: Patient is an 80-year-old male who presents to ER with friends/family. Patient lives alone in [facility], but is checked on frequently by friends and family, as he is cognitively impaired. Patient did have Covid a few months ago, recently had his first Covid vaccination yesterday. Patient states later this afternoon he began having aches in his back, body aches, weakness. Patient denies any other symptoms, chest pain, shortness of breath, fever, chills, nausea, vomiting, diarrhea. Patient denies having any falls today. Also denies any urinary symptoms, urgency, frequency, burning with urination. Patient did w alk to the bed with assist. Family here with the patient state he will need to be admitted until he is stronger, as he cannot be left alone in his home when he is this week. Family states there is no place for him to stay until he is stronger. Family states that the patient is able to pay self-pay to be in swing bed. Onset: Today mid thoracic back Pain Score (Numeric/FACES): 4 - Related Data Allergies Allergy/AdvReac Type Severity Reaction Status Date / Time No Known Allergies Allergy Verified 02/15/21 20:07 Home Meds: Home Meds Acetaminophen [Tylenol] 650 mg PO Q4H PRN tablet 09/26/20 [Rx] Loperamide [Imodium] 2 mg PO Q4H PRN cap 09/26/20 [Rx] Cholecalciferol (Vitamin D3) [Vitamin D3] 20 mcg PO DAILY tablet 10/28/20 [Rx] Docusate Sodium/Sennosides [Senna Plus] 2 tab PO BID PRN tablet 10/28/20 [Rx] lisinopriL [Prinivil] 5 mg PO DAILY #30 tablet 10/28/20 [Rx] atorvaSTATin [Lipitor] 40 mg PO BEDTIME 02/15/21 [History] Past Medical History HEENT History: Reports: Impaired Vision Other HEENT History: Wears glasses Cardiovascular History: Reports: None, High Cholesterol, Hypertension Gastrointestinal History: Reports: None Genitourinary History: Reports: None Musculoskeletal History: Reports: None Psychiatric History: Reports: Other (See Below) Other Psychiatric History: cognitively impaired Endocrine/Metabolic History: Reports: Other (See Below) Other Endocrine/Metabolic History: Prediabetes Hematologic History: Reports: None Immunologic History: Reports: None Oncologic (Cancer) History: Reports: None - Infectious Disease History Infectious Disease History: Reports: Novel Coronavirus - Past Surgical History Head Surgeries/Procedures: Reports: None HEENT Surgical History: Reports: None Cardiovascular Surgical History: Reports: None Respiratory Surgical History: Reports: None GI Surgical History: Reports: None Male Surgical History: Reports: None Musculoskeletal Surgical History: Reports: None Oncologic Surgical History: Reports: None Social & Family History - Caffeine Use Caffeine Use: Reports: None ED ROS GENERAL - Review of Systems Review Of Systems: Comprehensive ROS is negative, except as noted in HPI. ED EXAM, GENERAL - Physical Exam Exam: See Below Exam Limited By: No Limitations General Appearance: Alert, WD/WN, No Apparent Distress Eye Exam: Bilateral Eye: EOMI, Normal Inspection Ears: Normal External Exam, Hearing Grossly Normal Nose: Normal Inspection Throat/Mouth: Normal Inspection, Normal Voice, No Airway Compromise Head: Atraumatic, Normocephalic Neck: Normal Inspection, Supple, Non-Tender, Full Range of Motion Respiratory/Chest: No Respiratory Distress, Lungs Clear, Normal Breath Sounds, No Accessory Muscle Use, Chest Non-Tender Cardiovascular: Normal Peripheral Pulses, Regular Rate, Rhythm, No Edema, No Gallop, No JVD, No Murmur, No Rub Peripheral Pulses: 2+: Radial (L), Radial (R) GI/Abdominal: Normal Bowel Sounds, Soft, Non-Tender (Male) Exam: Deferred Rectal (Males) Exam: Deferred Back Exam: Normal Inspection Extremities: Normal Inspection, Normal Range of Motion, Non-Tender, Normal Capillary Refill, No Pedal Edema Neurological: Alert, Oriented, CN II-XII Intact, No Motor/Sensory Deficits, Slow to Respond Psychiatric: Normal Affect, Normal Mood Skin Exam: Warm, Dry, Intact, Normal Color, No Rash Lymphatic: No Adenopathy Course - Vital Signs Last Recorded V/S: Last Vital Signs Temp 98 F 02/16/21 12:10 Pulse 86 02/16/21 12:10 Resp 18 02/16/21 12:10 BP 167/77 H 02/16/21 12:47 Pulse Ox 96 02/16/21 12:10 - Orders/Labs/Meds Labs: Laboratory Tests 02/15/21 02/15/21 02/15/21 Range/Units 20:23 20:23 20:30 WBC 7.4 (4.0-10.0) x10^3/uL RBC 4.35 L (4.5-6.0) x10^6/uL Hgb 14.0 (14.0-18.0) g/dL Hct 41.5 (40.0-52.0) % MCV 95.4 H D (78.0-93.0) fL MCH 32.2 H (26.0-32.0) pg MCHC 33.7 (32.0-36.0) g/dL RDW Coeff of Shantel 11.9 (10.0-15.0) % Plt Count 147 (130-400) x10^3/uL Neut % (Auto) 82.0 H (50.0-80.0) % Lymph % (Auto) 8.4 L (25.0-50.0) % [place] % (Auto) 7.2 (2.0-11.0) % Eos % (Auto) 2.0 (0.0-4.0) % Baso % (Auto) 0.4 (0.2-1.2) % Sodium 139 (136-145) mmol/L Potassium 3.7 (3.5-5.1) mmol/L Chloride 105 (98-107) mmol/L Carbon Dioxide 25 (21-32) mmol/L Anion Gap 12.7 (5-15) mmol/L BUN 16 (7-18) mg/dL Creatinine 1.3 (0.70-1.30) mg/dL Est Cr Clr Drug Dosing 42.37 mL/min Estimated GFR (MDRD) 53 Glucose 194 H (74-106) mg/dL Calcium 8.4 L (8.5-10.1) mg/dL Corrected Calcium 8.88 (8.5-10.1) mg/dL Magnesium 1.8 (1.8-2.4) mg/dL Total Bilirubin 0.6 (0.2-1.0) mg/dL AST 18 (15-37) U/L ALT 32 (16-63) U/L Alkaline Phosphatase 74 (46-116) U/L C-Reactive Protein 1.6 H (<=0.9) mg/dL Total Protein 7.2 (6.4-8.2) g/dL Albumin 3.4 (3.4-5.0) g/dL Globulin 3.8 Albumin/Globulin Ratio 0.89 Urine Color Dark yellow H (YELLOW) Urine Appearance Slightly cloudy H (CLEAR) Urine pH 6.5 (5.0-8.0) Ur Specific [place] >=1.030 Urine Protein 30 H (NEGATIVE) mg/dL Urine Glucose (UA) 100 H (NEGATIVE) mg/dL Urine Ketones Negative (NEGATIVE) mg/dL Urine Occult Blood Trace-intact H (NEGATIVE) Urine Nitrite Negative (NEGATIVE) Urine Bilirubin Small H (NEGATIVE) Urine Urobilinogen 0.2 (0.2) EU/dL Ur Leukocyte Esterase Negative (NEGATIVE) Urine RBC 0-5 (NOT SEEN) /HPF Urine WBC 5-10 H (NOT SEEN) /HPF Ur Squamous Epith Cells Not seen (NOT SEEN) /HPF Calcium Oxalate Crystal Few H (NOT SEEN) /HPF Amorphous Sediment Few Urine Bacteria Rare (NOT SEEN) /HPF Urine Mucus Moderate H (NOT SEEN) /LPF Meds: Medications Discontinued Medications Generic Name Dose Route Start Last Admin Trade Name Freq PRN Reason Stop Dose Admin Acetaminophen 650 mg 02/16/21 09:36 Acetaminophen 325 Mg Tab PO Q4H PRN Pain (Mild 1-3)/fever Atorvastatin Calcium 40 mg 02/16/21 20:00 Atorvastatin 40 Mg Tab PO BEDTIME KRAIG Cholecalciferol 20 mcg 02/17/21 08:00 Cholecalciferol (Vitamin D3) 10 Mcg Tab PO DAILY KRAIG Sodium Chloride 1,000 mls @ 500 mls/hr 02/15/21 21:06 02/15/21 21:15 Normal Saline IV 02/15/21 23:05 500 mls/hr ONETIME ONE Administration Sodium Chloride 1,000 mls @ 150 mls/hr 02/15/21 21:27 02/16/21 06:13 Normal Saline IV 02/16/21 04:06 0 mls/hr CONTINUOUS ONE Infusion Lisinopril 5 mg 02/16/21 09:45 02/16/21 10:05 Lisinopril 5 Mg Tab PO 5 mg DAILY KRAIG Administration Lisinopril 5 mg 02/16/21 12:29 02/16/21 12:47 Lisinopril 5 Mg Tab PO 02/16/21 12:30 5 mg ONETIME ONE Administration Loperamide HCl 2 mg 02/16/21 09:36 Loperamide 2 Mg Cap PO Q4H PRN Diarrhea Senna/Docusate Sodium 2 tab 02/16/21 09:36 Docusate Sodium/Sennosides 50-8.6 Mg Tab PO BID PRN Constipation Departure - Departure Time of Disposition: 10:55 Disposition: Refer to Observation Condition: Fair Clinical Impression: Myalgia after COVID-19 vaccination, Dehydration - Discharge Information *PRESCRIPTION DRUG MONITORING PROGRAM REVIEWED*: No *COPY OF PRESCRIPTION DRUG MONITORING REPORT IN PATIENT GABE: No
[2021-02-15 20:51] LABS: ANION GAP 12.7 mmol/L (5-15)
[2021-02-15] MEDS ORDERED: Sodium Chloride 0.9% 1,000 ML IV ONE ×2 (21:06→21:27)
[2021-02-16 08:25] LABS: ANION GAP 9.8 mmol/L (5-15)
[2021-02-16] MEDS ORDERED: Loperamide 2 MG Cap PO PRN (09:36)
[2021-02-16] MEDS ORDERED: Acetaminophen 325 MG Tab PO PRN (09:36)
[2021-02-16] MEDS ORDERED: Lisinopril 5 MG Tab PO SCH (09:45)
--- NOTE | 2021-02-16 10:53 | PCM.DCSUM1 ---
Discharge Summary - Hospital Course Free Text/Narrative:: Kyle Raza is an 80yoM who presented to the ER last night for weakness. He is a developmentally disabled man who lives on his own and received his COVID late this last week. Caregivers were contacted due to inability for him to care for himself. He was brought in by [facility] and his legal guardian also noted he would not be able to return home. Labs were notable for some slight dehydration. He was treated with IVF overnight. This morning he is doing quite well. Nursing has had him up and ambulating and he is able to do so independently without any falls/weakness. He denies any troubles to this provider. We will plan to discharge him home today. Encourage good water intake. His BP is up a little bit here but I am guessing he did not take his lisinopril yesterday. Dose given today. I would like for him to follow-up with his PCP in 1-2 weeks for a hospital discharge follow-up in regards to his BP and social situation. - Discharge Data Discharge Date: 02/16/21 Discharge Disposition: Home, Self-Care 01 Condition: Good - Referral to Home Health Primary Care Physician: Reji Palencia PA-C - Patient Instructions Activity: As Tolerated - Discharge Plan *PRESCRIPTION DRUG MONITORING PROGRAM REVIEWED*: No *COPY OF PRESCRIPTION DRUG MONITORING REPORT IN PATIENT GABE: No Home Medications: Home Meds Acetaminophen [Tylenol] 650 mg PO Q4H PRN tablet 09/26/20 [Rx] Loperamide [Imodium] 2 mg PO Q4H PRN cap 09/26/20 [Rx] Cholecalciferol (Vitamin D3) [Vitamin D3] 20 mcg PO DAILY tablet 10/28/20 [Rx] Docusate Sodium/Sennosides [Senna Plus] 2 tab PO BID PRN tablet 10/28/20 [Rx] lisinopriL [Prinivil] 5 mg PO DAILY #30 tablet 10/28/20 [Rx] atorvaSTATin [Lipitor] 40 mg PO BEDTIME 02/15/21 [History] Forms: ED Department Discharge Referrals: Reji Palencia PA-C [Primary Care Provider] - - Discharge Summary/Plan Comment DC Time >30 min.: No - Patient Data Vitals - Most Recent: Last Vital Signs Temp 98.3 F 02/16/21 10:00 Pulse 83 02/16/21 10:00 Resp 16 02/16/21 10:00 BP 175/98 H 02/16/21 10:05 Pulse Ox 98 02/16/21 10:00 Weight - Most Recent: 529 lb 1.75 oz I&O - Last 24 hours: Intake & Output 02/15/21 02/16/21 02/16/21 22:59 06:59 14:59 Intake Total 500 60 Output Total 0 Balance 500 0 60 Lab Results - Last 24 hrs: Laboratory Results - last 24 hr 02/15/21 02/15/21 02/15/21 Range/Units 20:23 20:23 20:30 WBC 7.4 (4.0-10.0) x10^3/uL RBC 4.35 L (4.5-6.0) x10^6/uL Hgb 14.0 (14.0-18.0) g/dL Hct 41.5 (40.0-52.0) % MCV 95.4 H D (78.0-93.0) fL MCH 32.2 H (26.0-32.0) pg MCHC 33.7 (32.0-36.0) g/dL RDW Coeff of Shantel 11.9 (10.0-15.0) % Plt Count 147 (130-400) x10^3/uL Neut % (Auto) 82.0 H (50.0-80.0) % Lymph % (Auto) 8.4 L (25.0-50.0) % [place] % (Auto) 7.2 (2.0-11.0) % Eos % (Auto) 2.0 (0.0-4.0) % Baso % (Auto) 0.4 (0.2-1.2) % Sodium 139 (136-145) mmol/L Potassium 3.7 (3.5-5.1) mmol/L Chloride 105 (98-107) mmol/L Carbon Dioxide 25 (21-32) mmol/L Anion Gap 12.7 (5-15) mmol/L BUN 16 (7-18) mg/dL Creatinine 1.3 (0.70-1.30) mg/dL Est Cr Clr Drug Dosing 42.37 mL/min Estimated GFR (MDRD) 53 Glucose 194 H (74-106) mg/dL Calcium 8.4 L (8.5-10.1) mg/dL Corrected Calcium 8.88 (8.5-10.1) mg/dL Magnesium 1.8 (1.8-2.4) mg/dL Total Bilirubin 0.6 (0.2-1.0) mg/dL AST 18 (15-37) U/L ALT 32 (16-63) U/L Alkaline Phosphatase 74 (46-116) U/L C-Reactive Protein 1.6 H (<=0.9) mg/dL Total Protein 7.2 (6.4-8.2) g/dL Albumin 3.4 (3.4-5.0) g/dL Globulin 3.8 Albumin/Globulin Ratio 0.89 Urine Color Dark yellow H (YELLOW) Urine Appearance Slightly cloudy H (CLEAR) Urine pH 6.5 (5.0-8.0) Ur Specific [place] >=1.030 Urine Protein 30 H (NEGATIVE) mg/dL Urine Glucose (UA) 100 H (NEGATIVE) mg/dL Urine Ketones Negative (NEGATIVE) mg/dL Urine Occult Blood Trace-intact H (NEGATIVE) Urine Nitrite Negative (NEGATIVE) Urine Bilirubin Small H (NEGATIVE) Urine Urobilinogen 0.2 (0.2) EU/dL Ur Leukocyte Esterase Negative (NEGATIVE) Urine RBC 0-5 (NOT SEEN) /HPF Urine WBC 5-10 H (NOT SEEN) /HPF Ur Squamous Epith Cells Not seen (NOT SEEN) /HPF Calcium Oxalate Crystal Few H (NOT SEEN) /HPF Amorphous Sediment Few Urine Bacteria Rare (NOT SEEN) /HPF Urine Mucus Moderate H (NOT SEEN) /LPF 02/16/21 02/16/21 Range/Units 07:39 07:39 WBC 6.8 (4.0-10.0) x10^3/uL RBC 4.18 L (4.5-6.0) x10^6/uL Hgb 13.6 L (14.0-18.0) g/dL Hct 40.6 (40.0-52.0) % MCV 97.1 H (78.0-93.0) fL MCH 32.5 H (26.0-32.0) pg MCHC 33.5 (32.0-36.0) g/dL RDW Coeff of Shantel 11.7 (10.0-15.0) % Plt Count 137 (130-400) x10^3/uL Neut % (Auto) 71.0 (50.0-80.0) % Lymph % (Auto) 14.3 L (25.0-50.0) % [place] % (Auto) 10.6 (2.0-11.0) % Eos % (Auto) 3.7 (0.0-4.0) % Baso % (Auto) 0.4 (0.2-1.2) % Sodium 141 (136-145) mmol/L Potassium 3.8 (3.5-5.1) mmol/L Chloride 109 H (98-107) mmol/L Carbon Dioxide 26 (21-32) mmol/L Anion Gap 9.8 (5-15) mmol/L BUN 13 (7-18) mg/dL Creatinine 1.2 (0.70-1.30) mg/dL Est Cr Clr Drug Dosing 47.50 mL/min Estimated GFR (MDRD) 58 Glucose 126 H (74-106) mg/dL Calcium 8.2 L (8.5-10.1) mg/dL Corrected Calcium 8.92 (8.5-10.1) mg/dL Magnesium (1.8-2.4) mg/dL Total Bilirubin 0.6 (0.2-1.0) mg/dL AST 21 (15-37) U/L ALT 31 (16-63) U/L Alkaline Phosphatase 67 (46-116) U/L C-Reactive Protein 2.2 H (<=0.9) mg/dL Total Protein 6.8 (6.4-8.2) g/dL Albumin 3.1 L (3.4-5.0) g/dL Globulin 3.7 Albumin/Globulin Ratio 0.84 Urine Color (YELLOW) Urine Appearance (CLEAR) Urine pH (5.0-8.0) Ur Specific [place] Urine Protein (NEGATIVE) mg/dL Urine Glucose (UA) (NEGATIVE) mg/dL Urine Ketones (NEGATIVE) mg/dL Urine Occult Blood (NEGATIVE) Urine Nitrite (NEGATIVE) Urine Bilirubin (NEGATIVE) Urine Urobilinogen (0.2) EU/dL Ur Leukocyte Esterase (NEGATIVE) Urine RBC (NOT SEEN) /HPF Urine WBC (NOT SEEN) /HPF Ur Squamous Epith Cells (NOT SEEN) /HPF Calcium Oxalate Crystal (NOT SEEN) /HPF Amorphous Sediment Urine Bacteria (NOT SEEN) /HPF Urine Mucus (NOT SEEN) /LPF Med Orders - Current: Current Medications Acetaminophen (Acetaminophen 325 Mg Tab) 650 mg PO Q4H PRN PRN Reason: Pain (Mild 1-3)/fever Atorvastatin Calcium (Atorvastatin 40 Mg Tab) 40 mg PO BEDTIME KRAIG Cholecalciferol (Cholecalciferol (Vitamin D3) 10 Mcg Tab) 20 mcg PO DAILY KRAIG Lisinopril (Lisinopril 5 Mg Tab) 5 mg PO DAILY KRAIG Last Admin: 02/16/21 10:05 Dose: 5 mg Documented by: Loperamide HCl (Loperamide 2 Mg Cap) 2 mg PO Q4H PRN PRN Reason: Diarrhea Senna/Docusate Sodium (Docusate Sodium/Sennosides 50-8.6 Mg Tab) 2 tab PO BID PRN PRN Reason: Constipation Discontinued Medications Sodium Chloride (Normal Saline) 1,000 mls @ 500 mls/hr IV ONETIME ONE Stop: 02/15/21 23:05 Last Admin: 02/15/21 21:15 Dose: 500 mls/hr Documented by: Sodium Chloride (Normal Saline) 1,000 mls @ 150 mls/hr IV CONTINUOUS ONE Stop: 02/16/21 04:06 Last Infusion: 02/16/21 06:13 Dose: 0 mls/hr Documented by: - Exam General: Reports: Alert, Oriented HEENT: Reports: EOMI, Mucous Membr. Moist/[place] Neck: Reports: Supple Lungs: Reports: Clear to Auscultation, Normal Respiratory Effort Cardiovascular: Reports: Regular Rate, Regular Rhythm GI/Abdominal Exam: Normal Bowel Sounds, Soft, Non-Tender Back Exam: Reports: Normal Inspection Extremities: Non-Tender, No Pedal Edema Skin: Reports: Warm, Dry Neurological: Reports: No New Focal Deficit Psy/Mental Status: Reports: Alert, Normal Affect, Normal Mood Physical Findings Comments:: Patient is up and ambulating well with nursing. No further weakness concerns.
[2021-02-16] MEDS ORDERED: Lisinopril 5 MG Tab PO ONE (12:29)
[2021-02-16] MEDS ORDERED: atorvaSTATin 40 MG Tab PO SCH (20:00)
[2021-02-17] MEDS ORDERED: Cholecalciferol (Vitamin D3) 10 MCG Tab PO SCH (08:00)
== END 2021-02-16 13:05 | disposition home or self-care (01) ==
LOC: VM.ED 19:44 → VM.MS 21:02
PROVIDERS: ADMIT Nurse Practitioner Family; ATTEND Nurse Practitioner Family
DX: R53.1 Weakness (principal); T50.B95A Adverse effect of other viral vaccines, initial encounter; E78.00 Pure hypercholesterolemia, unspecified; I10 Essential (primary) hypertension; Z79.899 Other long term (current) drug therapy
CPT/HCPCS: 36415; 80053; 81001; 83735; 85025; 86140; 99220; 99285; A9270-GY; G0378; J7030

== ENCOUNTER 2021-03-14 08:54 | Inpatient (IN) | payer MEDICARE ==
[2021-03-14] MEDS ORDERED: Loperamide 2 MG Cap PO PRN (15:04)
[2021-03-14] MEDS: atorvaSTATin 40 MG Tab (OWN SUPPLY) PO SCH (19:56)
[2021-03-14] MEDS: Acetaminophen 325 MG Tab PO PRN (19:56)
--- NOTE | 2021-03-14 22:56 | HP ---
CHIEF COMPLAINT: COVID vaccine. HISTORY OF PRESENT ILLNESS: This is an 80-year-old male, well known to myself as I cared for him when he had COVID-19 back in 09/2020 and was discharged home. Then, on 02/15/2021, he had his first vaccination. Later that evening, he began feeling achy and weak. Therefore, he ended up getting admitted for observation and was discharged home the next day. This time, he got his shot this morning and they are prophylactically admitting him as he does live at home and has underlying cognitive impairment. The patient has no concerns. He is not yet having any symptoms. He got Moderna today. No cough. No shortness of breath. ALLERGIES: None. MEDICATIONS: Reviewed. Just Lipitor 40 mg daily, lisinopril 5 mg daily, Tylenol 650 every 4 hours as needed for fever, and vitamin D 20 mcg daily. PAST MEDICAL HISTORY: Includes impaired fasting glucose, impaired cognitive function, mixed hyperlipidemia, family history of diabetes, essential hypertension, and BPH. PAST SURGICAL HISTORY: Otherwise, surgically the patient has had colonoscopies. FAMILY HISTORY: It is unknown other than a history of diabetes. SOCIAL HISTORY: The patient is single. He lives independently. He has family that check in on him. He has a guardian with the [facility], Lupe Ellington. He is a nonsmoker, nondrinker. REVIEW OF SYSTEMS: General: He is not aware of any weight changes, otherwise. No fever, no chills. HEENT: No sore throat. No trouble swallowing. Cardiac: No chest pain. No palpitations. Respiratory: No cough. No shortness of breath. Abdominal: No nausea, vomiting, or diarrhea. PHYSICAL EXAMINATION: Vital Signs: On admission today, he has weight 81.7 kg, temp 98.6, pulse 82, blood pressure 139/89, respiratory rate 19, O2 of 99% on room air. General: He is in no acute distress. Heart: Regular rate and rhythm. S1, S2 without murmur. Lungs: Lung sounds are clear to auscultation bilaterally without crackles or wheezes. Abdomen: Positive bowel sounds. Soft, nondistended, nontender. Extremities: Warm and dry. No edema. Mental Status: He is alert. He is orientated. He is aware he is in the hospital. He remembers us. He is in good spirits. There have been no behaviors. ASSESSMENT AND PLAN: 1. History of coronavirus disease 2019 infection with second dose of his Moderna today. 2. Essential hypertension. 3. Impaired fasting glucose. 4. Hyperlipidemia. 5. Cognitive impairment and reported mental retardation. At this point, the patient is just admitted for swing bed for assistance with ADLs over the next several days due to getting his second COVID shot today and supportive cares. I do not anticipate he will need any major care other than to push fluids. He will be on a diabetic diet. We will do Accu-Cheks in the mornings. He is a code level 3. MKA: 03/14/2021 21:12:32 MODL: 03/14/2021 22:49:55 /[id number]
[2021-03-15] MEDS: Acetaminophen 325 MG Tab PO PRN ×2 (06:50→20:33)
[2021-03-15] MEDS: LISINOPRIL 5 MG PO SCH (08:16)
[2021-03-15] MEDS: Cholecalciferol (Vitamin D3) 10 MCG Tab PO SCH (08:17)
[2021-03-15] MEDS: atorvaSTATin 40 MG Tab (OWN SUPPLY) PO SCH (20:32)
[2021-03-16] MEDS: Cholecalciferol (Vitamin D3) 10 MCG Tab PO SCH (08:00)
[2021-03-16] MEDS: LISINOPRIL 5 MG PO SCH (08:00)
[2021-03-16] MEDS: Acetaminophen 325 MG Tab PO PRN (08:02)
[2021-03-16] MEDS: atorvaSTATin 40 MG Tab (OWN SUPPLY) PO SCH (19:58)
[2021-03-17] MEDS: LISINOPRIL 5 MG PO SCH (07:41)
[2021-03-17] MEDS: Acetaminophen 325 MG Tab PO PRN (07:41)
[2021-03-17] MEDS: Cholecalciferol (Vitamin D3) 10 MCG Tab PO SCH (07:42)
--- NOTE | 2021-03-17 18:02 | PCM.DCSUM1 ---
Discharge Summary - Hospital Course Free Text/Narrative:: 80 yo admitted for self pay swing on 03/14 after his COVID shot he had low grade temp 100.8 for tmax over the weekend but otherwise did fine. Blood sugars were checked once daily and are excellent. He is up walking the halls this AM and ready to return home to his support system in [place]. Diagnosis: Stroke: No - Discharge Data Discharge Date: 03/17/21 Discharge Disposition: Home, Self-Care 01 Condition: Good - Referral to Home Health Primary Care Physician: Reji Palencia PA-C - Patient Instructions Diet: Usual Diet as Tolerated Activity: As Tolerated Driving: Do Not Drive Showering/Bathing: May Shower Notify Provider of: Fever, Increased Pain, Swelling and Redness, Nausea and/or Vomiting Other/Special Instructions: Recheck with your Regular provider in [place] as planned. Resume your same medications and treatments - Discharge Plan *PRESCRIPTION DRUG MONITORING PROGRAM REVIEWED*: Not Applicable *COPY OF PRESCRIPTION DRUG MONITORING REPORT IN PATIENT GABE: Not Applicable Home Medications: Home Meds Acetaminophen [Tylenol] 650 mg PO Q4H PRN tablet 09/26/20 [Rx] Loperamide [Imodium] 2 mg PO Q4H PRN cap 09/26/20 [Rx] Cholecalciferol (Vitamin D3) [Vitamin D3] 20 mcg PO DAILY tablet 10/28/20 [Rx] Docusate Sodium/Sennosides [Senna Plus] 2 tab PO BID PRN tablet 10/28/20 [Rx] lisinopriL [Prinivil] 5 mg PO DAILY #30 tablet 10/28/20 [Rx] atorvaSTATin [Lipitor] 40 mg PO BEDTIME 02/15/21 [History] Oxygen Therapy Mode: Room Air - Discharge Summary/Plan Comment DC Time >30 min.: No - General Info Date of Service: 03/17/21 Functional Status: Reports: Pain Controlled - Review of Systems General: Denies: Fever, Weakness, Fatigue, Chills Pulmonary: Reports: No Symptoms Cardiovascular: Reports: No Symptoms Gastrointestinal: Reports: No Symptoms - Patient Data Vitals - Most Recent: Last Vital Signs Temp 97.4 F 03/17/21 05:35 Pulse 69 03/17/21 05:35 Resp 17 03/17/21 05:35 BP 126/66 03/17/21 07:41 Pulse Ox 97 04/26/21 05:35 Weight - Most Recent: 81.703 kg I&O - Last 24 hours: Intake & Output 03/17/21 03/17/21 03/17/21 06:59 14:59 22:59 Intake Total 360 Balance 360 Lab Results - Last 24 hrs: Laboratory Results - last 24 hr 03/17/21 Range/Units 05:24 POC Glucose 132 H (70-99) mg/dL Med Orders - Current: Current Medications Discontinued Medications Acetaminophen (Acetaminophen 325 Mg Tab) 650 mg PO Q4H PRN PRN Reason: Pain (Mild 1-3)/fever Last Admin: 03/17/21 07:41 Dose: 650 mg Documented by: Atorvastatin Calcium (Atorvastatin 40 Mg Tab (Own Supply)) 40 mg PO BEDTIME [facility] Last Admin: 03/16/21 19:58 Dose: 40 mg Documented by: Cholecalciferol (Cholecalciferol (Vitamin D3) 10 Mcg Tab) 20 mcg PO DAILY [facility] Last Admin: 03/17/21 07:42 Dose: 20 mcg Documented by: Lisinopril (Lisinopril 5 Mg Tab (Own Supply)) 5 mg PO DAILY [facility] Last Admin: 03/17/21 07:41 Dose: 5 mg Documented by: Loperamide HCl (Loperamide 2 Mg Cap) 2 mg PO Q4H PRN PRN Reason: Diarrhea Senna/Docusate Sodium (Docusate Sodium/Sennosides 50-8.6 Mg Tab) 2 tab PO BID PRN PRN Reason: Constipation - Exam General: Reports: Alert, Oriented Lungs: Reports: Clear to Auscultation, Normal Respiratory Effort Cardiovascular: Reports: Regular Rate, Regular Rhythm
== END 2021-03-17 15:21 | disposition home or self-care (01) | DRG 948 ==
LOC: VM.MS 12:57 → UNDOADMIN 12:57 → UNDODISIN 03-17 15:21
PROVIDERS: ADMIT Internal Medicine; ATTEND Internal Medicine
DX: R53.1 Weakness (principal); I10 Essential (primary) hypertension; G31.84 Mild cognitive impairment of uncertain or unknown etiology; E78.2 Mixed hyperlipidemia; N40.0 Benign prostatic hyperplasia without lower urinary tract symptoms; Z20.822 Contact with and (suspected) exposure to COVID-19; Z79.899 Other long term (current) drug therapy
CPT/HCPCS: 82947; A9270-GY; U0002